=== PATIENT | male | born 1955 | race African-American/Black ===

== ENCOUNTER 2019-06-27 11:40 | Outpatient (CLI) | payer OTHER, SELFPAY ==
--- NOTE | ~2019-06-27 | XR_ITS ---
XR knee RT 3V DATE: 06/27/2019 12:15 INDICATION: Right knee pain TECHNIQUE: [place], lateral and AP views COMPARISON: 06/17/2018 right knee FINDINGS: Status post medial compartment surgical joint replacement. There is osteoarthritic spurring at the patellofemoral joint. No fracture or dislocation, periosteal reaction or bone destruction is evident. Minimal suprapatellar knee joint effusion is suggested. IMPRESSION: Osteophyte is at the patellofemoral compartment Minimal knee joint effusion is suggested Status post medial compartment joint replacement Reviewed, dictated and finalized at location A.
== END 2019-06-27 11:41 | disposition home or self-care (01) ==
PROVIDERS: PCP Family Medicine; Visit Provider Orthopaedic Surgery
DX: Z47.89 Encounter for other orthopedic aftercare (principal)
CPT/HCPCS: 73562

== ENCOUNTER 2019-06-27 12:23 | Emergency (ER) | payer OTHER, SELFPAY ==
--- NOTE | ~2019-06-27 | CT_ITS ---
EXAMINATION: CT brain wo con INDICATION: Headache COMPARISON: 09/11/2011 TECHNIQUE: Standard unenhanced head CT. The dose-length product (DLP) was 605.33 mGy-cm. The mA was a djusted according to patient size. Iterative reconstruction technique was employed. FINDINGS: There is no intracranial hemorrhage, acute infarction, or abnormal mass lesion. A chronic a tram of low attenuation in the left basal ganglia may reflect prominent perivascular space or old lacu sahil infarct. The ventricles are normal. There is no abnormal mass effect or midline shift. The de jesus-w nehemias matter differentiation is normal. The basal cisterns are patent. Multiple metallic fragments are again seen in and around the left orbit. The paranasal sinuses, mastoids and calvarium are normal. IMPRESSION: 1. No acute intracranial abnormality. 2. 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 Reviewed, dictated and finalized at location A.
[2019-06-27 12:28] VITALS: BP 176/79; PULSE 71; RESP 20; TEMP 36.7; O2SAT 100
[2019-06-27 12:35] VITALS: BP 160/79; PULSE 64; RESP 14; TEMP 36.8; O2SAT 99
--- NOTE | 2019-06-27 12:41 | ED.HA ---
HPI - Headache General Chief Complaint: Headache Stated Complaint: HEADACHE, NAUSEA Time Seen by Provider: 06/27/19 12:36 Source: patient Mode of arrival: ambulatory Limitations: no limitations History of Present Illness HPI Narrative: A 64 y/o male presents to the ED with c/o left frontal TATUM that radiates to his jaw. Pt states that the severe TATUM started 1 week ago when he woke up and has worsened that last 3 days. The TATUM is described as a squeezing feeling. He notes that the TATUM has been constant, but occasionally intensifies in severity. Pt adds that the TATUM is aggravated by eating. He has had this type of TATUM before 3 weeks ago when his jaw popped. Pt states that he saw a doctor and was told he has TMJ and was prescribed with Hydrocortisone and Meloxicam. He has been noncompliant with his medication and notes that this is because he is busy and forgets. Pt has a PMHx of HTN and chronic back pain. He took Tramadol this morning with no relief. Pt denies N/V, visual changes, and fever. MD elicited complaint: headache (Left frontal) Onset (ago): week(s) (1) Onset description: on awakening Location: left and frontal Severity: similar to previous episodes Quality & Timing: squeezing and similar to previous headaches Exacerbating factors: other (Eating) Associated symptoms: none Related Data Allergies Allergy/AdvReac Type Severity Reaction Status Date / Time No Known Allergies Allergy Verified 06/27/19 12:41 Review of Systems Review of Systems: All systems reviewed & are unremarkable except as noted in HPI and below Constitutional: Constitutional: Denies fever(s) Eyes: Eyes: Denies change in vision Gastrointestinal: Gastrointestinal: Denies nausea and Denies vomiting Neurologic: Reports headache(s) (Left frontal) [facility] Past Medical History Medical History (Updated 06/27/19 @ 14:21 by Dagmar Badillo MD) Arthritis Colon polyps Degeneration of intervertebral disc, site unspecified DVT (deep venous thrombosis) Essential (primary) hypertension Gastro-esophageal reflux disease without esophagitis Lumbago with sciatica Mixed hyperlipidemia Other irritable bowel syndrome Pulmonary embolism Rectal polyp TMJ (dislocation of temporomandibular joint) Toe fracture Surgical History Surgical History (Updated 06/27/19 @ 13:05 by Victorina Lynn) History of hand surgery Right, Knot removal Dr. Afton History of knee replacement, total Family History Family History Mother Diabetes mellitus Hypertension Family history of lung cancer Sibling Family history of malignant neoplasm of breast in first degree relative, Onset Age: 45 Social History Social History Smoking status: Never smoker Alcohol intake: current Additional living arrangements comments: Additional occupation/education comments: [employer] Gender identity (if verbalized by the patient): Male Exam Narrative: Exam Narrative: General appearance: Well-developed, well-nourished Skin: Normal color Head: Normocephalic, nontraumatic Eyes: Clear conjunctiva ENT: Oropharynx normal, ears normal, nose normal, moderate tenderness left TMJ worse when patient open and close his mouth. Neck: Supple, nontender Chest and respiratory: Airway patent, no respiratory distress, no accessory muscle use Heart: Regular rate/rhythm Abdomen: Soft, nontender, no organomegaly, quiet bowel sounds Vascular: Normal peripheral pulses, normal capillary refill. Musculoskeletal: Normal range of motion, nontender back Neurologic: Alert and oriented ?3, ETHOLOGIST is normal as tested, no gross motor deficit
--- NOTE | 2019-06-27 12:45 | ECG_ITS ---
Measurements Intervals [place] Rate: 63 P: 36 ID: [id number] QRS: 24 QRSD: 121 T: 30 QT: 393 QTc: 403 Interpretive Statements SINUS RHYTHM WITH FIRST DEGREE AV BLOCK INTRAVENTRICULAR CONDUCTION DELAY BORDERLINE T WAVE ABNORMALITY- ANTEROLAT/INF LEADS BASELINE WANDER- I, II ABNORMAL ECG Electronically Signed On 06-27-2019 13:29:51 CDT by Jones Hagen D.O.
[2019-06-27 13:17] LABS: Basophils Absolute Auto 0.1 K/mm3 (0.0-0.1); Basophils Percent Auto 0.7 % (0.2-1.2); Eosinophils Absolute Auto 0.2 K/mm3 (0-0.3); Eosinophils Percent Auto 2.9 % (0-4.4); Hematocrit 43.5 % (42.0-52.0); Hemoglobin 13.6 g/dL (14.0-18.0); Immature Granulocyte Absolute 0.01 K/mm3 (0.00-0.031); Immature Granulocyte Percent A 0.1 % (0-0.5); Lymphocytes Absolute Auto 3.62 K/mm3 (0.9-3.2); Lymphocytes Percent Auto 53.1 % (18.3-44.2); Mean Corpuscular HGB Conc 31.3 g/dl (32-36); Mean Corpuscular Hemoglobin 28.6 pg (26-34); Mean Corpuscular Volume 91.4 fl (80-100); Mean Platelet Volume 9.9 fl (7.4-10.4); Monocytes Absolute Auto 0.7 K/mm3 (0.1-0.6); Neutrophils Absolute Auto 2.3 K/mm3 (1.3-6.7); Neutrophils Percent Auto 33.2 % (45.5-73.1); Platelet Count Result 254 k/mm3 (150-375); Red Blood Count 4.76 M/mm3 (4.6-6.20); Red Cell Distribution Width 14.4 % (11.5-14.5); White Blood Count 6.8 K/mm3 (4.5-10.0)
[2019-06-27 13:24] LABS: Alanine Aminotransferase 28 U/L (4-50); Albumin Level 4.7 g/dL (3.5-5.1); Alkaline Phosphatase 42 U/L (38-126); Aspartate Amino Transferase 38 U/L (17-59); Bilirubin,Total 0.6 mg/dL (0.2-1.3); Blood Urea Nitrogen 14 mg/dL (9-20); Calcium 8.9 mg/dL (8.4-10.2); Carbon Dioxide 28 mmol/L (22-30); Chloride 103 mmol/L (98-107); Estimated CRCL calculation 81 ml/min; Estimated Glomerular Filt Rate > 60; Glucose 120 mg/dL (75-110); Potassium 4.4 mmol/L (3.4-5.0); Sodium 139 mmol/L (137-145)
[2019-06-27 13:40] LABS: Erythrocyte Sedimentation Rate 6 mm/hr (0-20)
[2019-06-27 13:48] VITALS: BP 151/77; PULSE 64; RESP 15; O2SAT 100
[2019-06-27] MEDS: IBUPROFEN 600 MG TABLET PO (14:18)
[2019-06-27 14:36] VITALS: BP 155/77; PULSE 59; RESP 14; O2SAT 100
== END 2019-06-27 14:37 | disposition home or self-care (01) ==
PROVIDERS: Emergency Provider Emergency Medicine; PCP Family Medicine
DX: M26.602 Left temporomandibular joint disorder, unspecified (principal); R51 Headache; I10 Essential (primary) hypertension; M19.90 Unspecified osteoarthritis, unspecified site; K21.9 Gastro-esophageal reflux disease without esophagitis; E78.2 Mixed hyperlipidemia; Z86.711 Personal history of pulmonary embolism; K58.9 Irritable bowel syndrome, unspecified; Z86.010 Personal history of colon polyps; Z91.14 Patient's other noncompliance with medication regimen; I44.0 Atrioventricular block, first degree; I45.9 Conduction disorder, unspecified; R94.31 Abnormal electrocardiogram [ECG] [EKG]
CPT/HCPCS: 36415; 70450; 80053; 85025; 85652; 93005; 99284; A9270

== ENCOUNTER 2019-08-24 11:02 | Outpatient (CLI) | payer OTHER, SELFPAY ==
--- NOTE | ~2019-08-24 | XR_ITS ---
EXAMINATION: XR knee LT 3V DATE: 08/24/2019 11:23 INDICATION: Left knee pain. TECHNIQUE: 3 views of left knee were obtained. COMPARISON: Left knee radiographs 07/25/2006 FINDINGS: Bone alignment is normal. No fracture. There is moderate osteoarthritis of medial compartme nt and mild osteoarthritis of lateral and patellofemoral compartments. No knee joint effusion. IMPRESSION: 1. Moderate left knee osteoarthritis. Reviewed, dictated and finalized at location A.
== END 2019-08-24 11:03 | disposition home or self-care (01) ==
PROVIDERS: PCP Family Medicine; Visit Provider Orthopaedic Surgery
DX: M25.562 Pain in left knee (principal); M17.12 Unilateral primary osteoarthritis, left knee
CPT/HCPCS: 73562

== ENCOUNTER 2020-02-20 11:31 | Outpatient (CLI) | payer OTHER, SELFPAY ==
--- NOTE | ~2020-02-20 | XR_ITS ---
EXAMINATION: XR hand LT min 3V DATE: 02/20/2020 11:52 INDICATION: Left hand pain. TECHNIQUE: 3 views of left hand were obtained. COMPARISON: None. FINDINGS: Bone alignment is normal. No fracture. There is mild osteoarthritis of first carpometacarpa l joint, first, second, and fifth metacarpophalangeal joints, and some of the interphalangeal joints. IMPRESSION: 1. Mild polyarticular osteoarthritis. Reviewed, dictated and finalized at location A. RAISER
== END 2020-02-20 11:32 | disposition home or self-care (01) ==
PROVIDERS: PCP Family Medicine; Visit Provider Orthopaedic Surgery
DX: M19.042 Primary osteoarthritis, left hand (principal); M18.12 Unilateral primary osteoarthritis of first carpometacarpal joint, left hand
CPT/HCPCS: 73130

== ENCOUNTER 2020-02-26 09:06 | Outpatient (CLI) | payer OTHER, SELFPAY ==
--- NOTE | ~2020-02-26 | US_ITS ---
EXAMINATION: US soft tissue UE LT DATE: 02/26/2020 09:59 INDICATION: Left hand lump and pain. TECHNIQUE: Multiple grayscale and Doppler ultrasound images of the left hand were obtained. COMPARISON: Left hand radiographs 01/20/2020 FINDINGS: At the palmar aspect of the left hand proximal third digit, there is discontinuity of the f lexor tendons with fluid in the expected area of the tendons. There is focal fluid around the tendons in this area. IMPRESSION: 1. Partial versus complete tear of the left hand third flexor digitorum tendons at the level of the p roximal phalanx. Focal fluid around the tendons in this area may be tenosynovitis or a ganglion cyst. Reviewed, dictated and finalized at location A. TREAD OPERATOR IMPRESSION: 1. Partial versus complete tear of the left hand third flexor digitorum tendons at the level of the proximal phalanx. Focal fluid around the tendons in this a tram may be tenosynovitis or a ganglion cyst.
== END 2020-02-26 09:07 | disposition home or self-care (01) ==
PROVIDERS: PCP Family Medicine; Visit Provider Orthopaedic Surgery
DX: S66.113A Strain of flexor muscle, fascia and tendon of left middle finger at wrist and hand level, initial encounter (principal)
CPT/HCPCS: 76882

== ENCOUNTER 2020-03-07 08:06 | Outpatient (CLI) | payer OTHER, SELFPAY ==
[2020-03-07 08:44] LABS: Anion Gap 7 mmol/L (8-16); Blood Urea Nitrogen 13 mg/dL (9-20); Calcium 9.3 mg/dL (8.4-10.2); Carbon Dioxide 34 mmol/L (22-30); Chloride 97 mmol/L (98-107); Estimated Glomerular Filt Rate > 60; Glucose 123 mg/dL (75-110); Sodium 138 mmol/L (137-145)
== END 2020-03-07 08:07 | disposition home or self-care (01) ==
LOC: ANHSURGERY 08:07
PROVIDERS: Anesthesiology; PCP Family Medicine; Visit Provider Orthopaedic Surgery
DX: Z01.812 Encounter for preprocedural laboratory examination (principal); I10 Essential (primary) hypertension
CPT/HCPCS: 36415; 80048

== ENCOUNTER 2020-03-11 01:37 | Outpatient (CLI) | payer OTHER, SELFPAY ==
[2020-03-11 21:25] LABS: SARS-CoV-2 RNA PCR Negative
== END 2020-03-11 01:38 | disposition home or self-care (01) ==
LOC: ANHCOVIDDT 01:37
PROVIDERS: PCP Family Medicine; Visit Provider Orthopaedic Surgery
DX: Z01.812 Encounter for preprocedural laboratory examination (principal); Z20.828 Contact with and (suspected) exposure to other viral communicable diseases
CPT/HCPCS: 87635; C9803; U0003

== ENCOUNTER 2020-03-14 01:51 | Day surgery (SDC) | payer OTHER, SELFPAY ==
[2020-03-04 12:33] VITALS: BMI 29.5
[2020-03-14] VITALS (8 sets, daily range): BP systolic 116–162; BP diastolic 63–76; PULSE 52–66; RESP 12–20; TEMP 36.4–36.5; O2SAT 97–100
--- NOTE | 2020-03-14 13:52 | WPDHPUPDATE1 ---
History and Physical Update Update Date/Time: 03/14/20 13:52 History and Physical has been reviewed, including an updated exam of the patient. There are NO changes in the patient's condition. Risks, benefits, and alternatives have been discussed and questions answered. Patient agrees to proceed with procedure.
[2020-03-14] MEDS: ACETAMINOPHEN 500 MG TABLET 1000 MG PO (13:56)
[2020-03-14] MEDS: LACTATED RINGERS 1,000 ML 30 ML IV CONT (14:00)
[2020-03-14] MEDS: KETOROLAC 15 MG/ML VIAL (*BKC) IV PUSH (14:02)
--- NOTE | 2020-03-14 14:04 | WPDANESEPPF ---
Anes - Initial Pre Proc Eval Procedure: Operation Date: 03/14/20 15:30 Proposed Procedures p Excision Left Third Finger Flexor Tendon Sheath Ganglion - Eyal Gregory MD Date/Time: 03/14/20 14:04 Surgeon: Eyal Gregory MD Pre Op Diagnosis: Left Third Finger Flexor Tendon Sheath Ganglion Patient Data Age: 65 Gender: M Height: 5 ft 9 in Weight: 90.75 kg Allergies Allergy/AdvReac Type Severity Reaction Status Date / Time No Known Allergies Allergy Verified 03/14/20 13:46 Home Medications Medication Instructions Recorded Confirmed Type telmisartan 80 1 tablet PO DAILY #90 tablet 02/24/19 03/14/20 Rx mg-hydrochlorothiazide 12.5 mg tablet tramadol 50 mg tablet 100 mg PO Q6H PRN #240 tablet 01/07/20 03/04/20 Rx hydrocodone 5 mg-acetaminophen 325 1 tablet PO Q6H PRN #60 tablet 02/23/20 03/04/20 Rx mg tablet ascorbate calcium (vitamin C) 500 mg PO DAILY 03/04/20 03/14/20 History calcium carbonate-vitamin D3 1 tablet PO DAILY 03/04/20 03/14/20 History [Calcium 500 + D (D3)] diazepam 5 mg PO PRN PRN 03/04/20 03/14/20 History glucos sul [id number]-Mn 1 cap PO DAILY 03/04/20 03/14/20 History [Glucosamine Chondroitin] multivitamin [Daily Multivitamin] 1 tablet PO DAILY 03/04/20 03/14/20 History tizanidine 4 mg PO PRN PRN 03/04/20 03/04/20 History vitamin B complex 1 cap PO DAILY 03/04/20 03/14/20 History Patient hx anesthesia problems: none Family hx anesthesia problems: none PMFSH Past Medical History Medical History Arthritis BMI 28.0-28.9,adult Colon polyps Degeneration of intervertebral disc, site unspecified DVT (deep venous thrombosis) Essential (primary) hypertension Gastro-esophageal reflux disease without esophagitis Hypertension Lumbago with sciatica Mixed hyperlipidemia Osteoarthritis of left knee Other irritable bowel syndrome Pulmonary embolism Rectal polyp TMJ (dislocation of temporomandibular joint) Toe fracture Surgical History Surgical History History of hand surgery Right, Knot removal Dr. Gregory S/P right unicompartmental knee replacement Family History Family History Mother Diabetes mellitus Hypertension Family history of lung cancer Sibling Family history of malignant neoplasm of breast in first degree relative, Onset Age: 45 Social History Social History Smoking status: Never smoker Alcohol intake: current Drinks per week: 4 Alcohol use details: BEER Living arrangements: with family Additional living arrangements comments: Additional occupation/education comments: [employer] [place] Gender identity (if verbalized by the patient): Male Spiritual care concerns: Yes ( Pentecostalism) Agree to blood products: No Anes - Eval Final PreProcedure Day of Procedure 03/14/20 14:04 Patient weight: overweight Heart: regular rate and rhythm Lungs: clear to auscultation Airway: Mallampati scale class II Neurological: alert and oriented Last oral intake: >/= 8 hours ASA classification: II Emergent: no Anesthetic plan: proceed Anesthesia type and monitoring: general LMA and standard monitoring Informed Consent: The patient's anesthetic plan and its attendant risks and benefits were discussed with the patient/family/POA. Questions were solicited and answers provided to the satisfaction of the patient/family/POA.
[2020-03-14] MEDS: ceFAZolin 2 GM/D5W 50 ML 2 GM/50 ML BAG IVPB (14:12)
[2020-03-14] MEDS: BUPIVACAINE HCL 0.5% PF 30 ML VIAL INFILTRATE (14:28)
--- NOTE | 2020-03-14 15:09 | P.OP_ITS ---
Procedure Note - Detailed Date of procedure: 03/14/20 Pre-op diagnosis: Left Third Finger Flexor Tendon Sheath Ganglion Post-op diagnosis: same Procedure performed: Excision ganglion left third finger flexor tendon sheath Description of procedure: Patient was identified and proper site identified. He was taken back to the operating room and transferred to the or table positioning him supine taking care to pad his torso and extremities. After general anesthetic induction and intubation, a nonsterile tourniquet was placed high on the left arm. Left upper extremity is prepped and draped free in the usual sterile fashion. Extremity was exsanguinated in the tourniquet was inflated to 250 mmHg remaining up for about 24 minutes. A Sveta type incision was made at the base of the left long finger volarly. Hemostasis was carried out throughout the procedure. Subcutaneous tissue was bluntly dissected identifying protecting the neurovascular bundles on either side of the flexor tendon sheath. Multilobulated ganglion was identified easily and decompressed after which the cyst lecuhga were excised. The wound was irrigated with sterile saline. Subcutaneous tissue was infiltrated with several cc of 0.25% plain Marcaine. Skin edges were reapproximated with four O nylon suture and sterile dressing was applied. Tourniquet was released. Patient was awakened, extubated taken recovery area in stable condition. There were no known intraoperative complications. Estimated blood loss was negligible. He received perioperative antibiotics. Anesthesia: GLMA Surgeon: Eyal Gregory MD Gas Usage Meter Clerk: Moe Greene Estimated blood loss (mL): 3 Tourniquet time (min): 24 Drains: No Packing: No Pathology: yes (Left hand third flexor tendon sheath cyst wall) Complications: No immediate complications Condition: stable Disposition: PACU
[2020-03-14] MEDS: oxyCODONE HCL (*CRX) 5 MG TAB IR PO (16:32)
== END 2020-03-14 16:40 | disposition home or self-care (01) ==
PROVIDERS: PCP Family Medicine; Visit Provider Orthopaedic Surgery
PROC: (CPT 26160; principal; 2020-03-14 15:30)
DX: M67.442 Ganglion, left hand (principal); I10 Essential (primary) hypertension; K21.9 Gastro-esophageal reflux disease without esophagitis; E78.2 Mixed hyperlipidemia; K58.9 Irritable bowel syndrome, unspecified; Z86.711 Personal history of pulmonary embolism; Z86.718 Personal history of other venous thrombosis and embolism
CPT/HCPCS: 26160; 88304; A9270; J0690; J1100; J1885; J2250; J2405; J2704; J3010; J7120

== ENCOUNTER 2020-03-26 19:55 | Observation (INO) | payer OTHER, SELFPAY ==
--- NOTE | ~2020-03-26 | XR_ITS ---
EXAMINATION: XR chest 1V portable DATE: 03/26/2020 22:39 INDICATION: Fever, chest pain, dyspnea and weakness. TECHNIQUE: frontal view of the chest was obtained. COMPARISON: Chest CT dated 03/26/2020 FINDINGS: The lungs are clear with no focal airspace opacities, pulmonary edema, pleural effusion or pneumothor ax. The cardiomediastinal silhouette is normal. Visualized bones and soft tissues are unremarkable. IMPRESSION: 1. No acute cardiopulmonary disease. Reviewed, dictated and finalized at location A. TAL PROOFING AND PLATEMAKER
--- NOTE | ~2020-03-26 | NM_ITS ---
EXAMINATION: NM gerry stress w perfusion DATE: 03/29/2020 13:02 INDICATION: Chest pain TECHNIQUE: Rest images were obtained following intravenous administration of 10 mCi Tc99m tetrofosmin (Myoview). The patient was infused intravenously with Lexiscan (Regadenoson). Then, 29.7 mCi Tc99m t etrofosmin (Myoview) was administered intravenously, and stress images were obtained. Data was recons tructed into short axis and horizontal and vertical long axis SPECT images. Gated SPECT images were a lso obtained. COMPARISON: None. FINDINGS: There is no definite reversible or fixed perfusion abnormality to suggest ischemia or infar ction. There is normal left ventricular chamber size, wall motion and ejection fraction. Left ventr icular ejection fraction measures >70%. IMPRESSION: 1. Normal myocardial perfusion at rest and during stress. 2. Left ventricular ejection fraction measuring >70%. Reviewed, dictated and finalized at location B. L MAINFRAME DEVELOPER
--- NOTE | ~2020-03-26 | CT_ITS ---
EXAMINATION: CTA chest PE protocol DATE: 03/26/2020 21:40 INDICATION: Fever, dyspnea, chest pain and weakness. TECHNIQUE: Computed tomography (CT) pulmonary angiogram of the chest was performed with 100 mL Omnipa que-350 intravenous contrast. Additional 3D reconstructions utilizing coronal maximum intensity proje ction (MIP) were performed. Automated exposure control and iterative reconstruction technique were em ployed. The dose-length product was 400.06 mGy-cm. COMPARISON: None FINDINGS: . contrast opacification of the pulmonary arteries. There is mild streak artifact from dense contrast in the superior vena cava and right atrium. Minimal scattered respiratory motion artifact which does not significantly limit evaluation. No pulmonary embolism. Minimal dependent atelectasis in the bila teral lower lobes. Calcified right lower lobe nodule along with calcified mediastinal lymph nodes and couple punctate splenic calcifications, all consistent with old granulomatous disease. No pneumonia, pulmonary edema, pleural effusion or pneumothorax. Heart size is normal. No pericardial effusion. Th oracic aorta is normal in caliber with no dissection. No pathologically enlarged thoracic lymphadenop athy. Mild bilateral gynecomastia. Cysts at the upper poles of both kidneys the largest on the right measuring 2.2 cm. Lungs are unremarkable. IMPRESSION: 1. No pulmonary embolism or other acute cardiopulmonary disease. Reviewed, dictated and finalized at location A. OCOMPOSITION KEYBOARD OPERATOR
--- NOTE | ~2020-03-26 | US_ITS ---
EXAMINATION: US renal BI DATE: 03/29/2020 11:27 INDICATION: Urinary tract infection TECHNIQUE: Multiple ultrasound grayscale images of the kidneys were obtained. COMPARISON: CT dated 11/02/2014 FINDINGS: The right kidney measures 11.5 x 5.6 x 5.0 cm. The left kidney measures 11.5 x 5.7 x 6.1 cm. The kidn eys demonstrate normal echogenicity. 1.3 cm anechoic cyst at the upper pole of the right kidney. Ther e is no hydronephrosis in either kidney. No stones identified. Diffuse wall thickening in the bladde r to at least in part to nearly decompressed state although this could also be related to chronic out let obstruction from the mildly enlarged prostate which measures approximately 4.4 x 2.9 x 4.1 cm. IMPRESSION: 1. Small cyst at the upper pole the right kidney. Otherwise normal kidneys with no hydronephrosis. 2. Diffuse bladder wall thickening due at least in part to nearly decompressed state although could a lso represent sequela of chronic outlet obstruction from the mildly enlarged prostate. Reviewed, dictated and finalized at location B. [place] [employer] IMPRESSION: 1. Small cyst at the upper pole the right kidney. Otherwise normal kidneys wit h no hydronephrosis. 2. Diffuse bladder wall thickening due at least in part to nearly decompressed state although could also represent sequela of chronic outlet obstruction from the mildly enlarged prostate.
--- NOTE | 2020-03-26 20:03 | ED.CHESTPAIN ---
HPI - Chest Pain General Chief Complaint: Chest Pain Stated Complaint: fever, back pain, chest pain Time Seen by Provider: 03/26/20 20:02 Source: patient Mode of arrival: ambulatory Limitations: no limitations History of Present Illness HPI narrative: Patient is a 65-year-old male with a history of hypertension who presents for evaluation of chest pain, fever. Chest pain has been intermittent since yesterday, described as a pressure over the center of his chest with radiation to his back. He reports mild associated shortness of breath but denies any cough. He has had a fever of 101 Fahrenheit to 102 Fahrenheit since yesterday. He reports rhinorrhea. He denies loss of sense of taste or smell. Denies lower leg swelling or pain. Patient recently had a ganglion cyst removal on March [address] Gregory, hand is well healing, he denies redness, swelling, pain or discharge at the left hand. Patient in the past is followed with the heart care group, he denies history of heart attack. He has never had an abnormal stress test. No recent sick contacts. No abdominal pain or diarrhea. He does report some mild dysuria and frequency. Related Data Home Medications Medication Instructions Recorded Confirmed Glucosamine Chondroitin 1 cap PO DAILY 03/04/20 03/14/20 ascorbate calcium (vitamin C) 500 mg PO DAILY 03/04/20 03/14/20 calcium carbonate-vitamin D3 1 tablet PO DAILY 03/04/20 03/14/20 diazepam 5 mg PO PRN PRN 03/04/20 03/14/20 multivitamin 1 tablet PO DAILY 03/04/20 03/14/20 tizanidine 4 mg PO PRN PRN 03/04/20 03/04/20 vitamin B complex 1 cap PO DAILY 03/04/20 03/14/20 Allergies Allergy/AdvReac Type Severity Reaction Status Date / Time No Known Allergies Allergy Verified 03/14/20 13:46 Review of Systems Review of Systems: Narrative: CONSTITUTIONAL: Reports fever and chills EYES: Denies visual changes, redness, or discharge. ENT: Reports rhinorrhea CARDIOVASCULAR: Reports chest pain without palpitations or edema RESPIRATORY: Denies cough, reports mild shortness of breath GASTROINTESTINAL: Denies abdominal pain, nausea, vomiting, or diarrhea. GENITOURINARY: Reports dysuria and frequency with SKIN: Denies rash or itching. MUSCULOSKELETAL: Denies lower back pain, joint pain, or myalgia. NEUROLOGIC: Denies headache, numbness, or weakness. [facility] Past Medical History Medical History Arthritis BMI 28.0-28.9,adult Colon polyps Degeneration of intervertebral disc, site unspecified DVT (deep venous thrombosis) Essential (primary) hypertension Gastro-esophageal reflux disease without esophagitis Hypertension Lumbago with sciatica Mixed hyperlipidemia Osteoarthritis of left knee Other irritable bowel syndrome Pulmonary embolism Rectal polyp TMJ (dislocation of temporomandibular joint) Toe fracture Surgical History Surgical History History of hand surgery Right, Knot removal Dr. 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 EYES: PERRLA and EOMI. ENT: Nares clear, no rhinorrhea or epistaxis. Mucous membranes moist. NEC
--- NOTE | 2020-03-26 20:11 | ECG_ITS ---
Measurements Intervals [place] Rate: 101 P: 28 LA: 186 QRS: 47 QRSD: 110 T: 24 QT: 309 QTc: 400 Interpretive Statements SINUS TACHYCARDIA DELAYED PRECORDIAL R/S TRANSITION BORDERLINE ST-T WAVE ABNORMALITY- DIFFUSE LEADS BORDERLINE ECG Electronically Signed On 03-27-2020 9:18:24 DRYWALL APPLICATION SUPERVISOR by Jones Hagen D.O.
[2020-03-26 20:16] VITALS: BP 159/83; PULSE 100; RESP 17; TEMP 38.3
[2020-03-26] MEDS: ASPIRIN 81 MG CHEWABLE TABLET 324 MG PO (20:28)
[2020-03-26 20:29] LABS: Basophils Absolute Auto 0.1 K/mm3 (0.0-0.1); Basophils Percent Auto 0.3 % (0.2-1.2); Eosinophils Absolute Auto 0.1 K/mm3 (0-0.3); Eosinophils Percent Auto 0.4 % (0-4.4); Hematocrit 47.1 % (42.0-52.0); Hemoglobin 15.3 g/dL (14.0-18.0); Immature Granulocyte Absolute 0.08 K/mm3 (0.00-0.031); Immature Granulocyte Percent A 0.4 % (0-0.5); Lymphocytes Percent Auto 17.3 % (18.3-44.2); Mean Corpuscular HGB Conc 32.5 g/dl (32-36); Mean Corpuscular Hemoglobin 28.8 pg (26-34); Mean Corpuscular Volume 88.7 fl (80-100); Mean Platelet Volume 9.5 fl (7.4-10.4); Monocytes Absolute Auto 1.5 K/mm3 (0.1-0.6); Monocytes Percent Auto 8.5 % (2.6-8.5); Neutrophils Absolute Auto 13.1 K/mm3 (1.3-6.7); Neutrophils Percent Auto 73.1 % (45.5-73.1); Platelet Count Result 233 k/mm3 (150-375); Red Blood Count 5.31 M/mm3 (4.6-6.20); Red Cell Distribution Width 14.5 % (11.5-14.5); White Blood Count 17.9 K/mm3 (4.5-10.0)
[2020-03-26] MEDS: ONDANSETRON INJ 4 MG/2 ML VIAL IV PUSH (20:29)
[2020-03-26] MEDS: MORPHINE SULFATE (*CRX) 4 MG/ML INJ IV PUSH (20:29)
[2020-03-26 20:42] LABS: INR 0.9
[2020-03-26 20:43] LABS: Partial Thromboplastin Time 30.8 SECONDS (22.3-36.8)
[2020-03-26 21:02] LABS: Alanine Aminotransferase 26 U/L (4-50); Albumin Level 4.8 g/dL (3.5-5.1); Alkaline Phosphatase 58 U/L (38-126); Anion Gap 10 mmol/L (8-16); Aspartate Amino Transferase 28 U/L (17-59); Bilirubin,Total 0.7 mg/dL (0.2-1.3); Blood Urea Nitrogen 8 mg/dL (9-20); Carbon Dioxide 33 mmol/L (22-30); Chloride 95 mmol/L (98-107); Estimated CRCL calculation 64 ml/min; Estimated Glomerular Filt Rate > 60; Glucose 135 mg/dL (75-110); NT Pro B Type Natriuretic Pept 33 PG/ML (5-100); Potassium 3.8 mmol/L (3.4-5.0); Sodium 138 mmol/L (137-145); Troponin I < 0.012 ng/mL (0.000-0.034)
[2020-03-26] MEDS: METOCLOPRAMIDE HCL INJ 10 MG/2 ML VIAL IV PUSH (21:18)
[2020-03-26] MEDS: SODIUM CHLORIDE 0.9% IV 500 ML 999 ML IV CONT (21:18)
[2020-03-26 21:19] VITALS: BP 159/83; PULSE 89; RESP 15; O2SAT 95
[2020-03-26 21:45] LABS: Add Urine Microscopic? YES; Appearance Urine Clear (Clear); Bilirubin Urine Negative (Negative); Blood Urine Negative (Negative); Color Urine Straw (Yellow); Glucose Urine UA Negative (Negative); Ketones Urine Negative (Negative); Leukocyte Esterase Ur Trace LEU/UL (Negative); Nitrate Urine Negative (Negative); Protein Urine Negative (Negative); RBC Urine 0-2 /hpf (0-2); Specific Grav Ur 1.006 (1.001-1.035); Squamous Epithelial Cell Urine Rare /hpf (Few); Urobilinogen Urine Negative mg/dL (<2.0); WBC Urine 16-20 /hpf
[2020-03-26 22:21] LABS: Lactic Acid Reflex 1.3 mmol/L (0.7-2.1)
--- NOTE | 2020-03-26 22:32 | PM.IMHP ---
H&P: HPI History of Present Illness Date/Time: 03/26/20 22:32 Chief complaint: fever, back pain, chest pain Narrative: Desmond Delcid is a 65 year old male [facility] Past Medical History Medical History Arthritis BMI 28.0-28.9,adult Colon polyps Degeneration of intervertebral disc, site unspecified DVT (deep venous thrombosis) Essential (primary) hypertension Gastro-esophageal reflux disease without esophagitis Hypertension Lumbago with sciatica Mixed hyperlipidemia Osteoarthritis of left knee Other irritable bowel syndrome Pulmonary embolism Rectal polyp TMJ (dislocation of temporomandibular joint) Toe fracture Surgical History Surgical History History of hand surgery Right, Knot removal Dr. Gregory S/P right unicompartmental knee replacement Family History Family History Mother Diabetes mellitus Hypertension Family history of lung cancer Sibling Family history of malignant neoplasm of breast in first degree relative, Onset Age: 45 Social History Social History Smoking status: Never smoker Alcohol intake: current Drinks per week: 4 Additional living arrangements comments: Additional occupation/education comments: [employer] Gender identity (if verbalized by the patient): Male Spiritual care concerns: Yes ( Baptist) Agree to blood products: No Meds Home Medications and Allergies Home Medications Medication Instructions Recorded Confirmed Type telmisartan 80 1 tablet PO DAILY #90 tablet 02/24/19 03/14/20 Rx mg-hydrochlorothiazide 12.5 mg tablet tramadol 50 mg tablet 100 mg PO Q6H PRN #240 tablet 01/07/20 03/04/20 Rx Glucosamine Chondroitin 1 cap PO DAILY 03/04/20 03/14/20 History ascorbate calcium (vitamin C) 500 mg PO DAILY 03/04/20 03/14/20 History calcium carbonate-vitamin D3 1 tablet PO DAILY 03/04/20 03/14/20 History diazepam 5 mg PO PRN PRN 03/04/20 03/14/20 History multivitamin 1 tablet PO DAILY 03/04/20 03/14/20 History tizanidine 4 mg PO PRN PRN 03/04/20 03/04/20 History vitamin B complex 1 cap PO DAILY 03/04/20 03/14/20 History hydrocodone-acetaminophen 1 tablet PO Q6H PRN #20 tablet 03/14/20 Rx Allergies Allergy/AdvReac Type Severity Reaction Status Date / Time No Known Allergies Allergy Verified 03/14/20 13:46 Vital Signs Vital Signs - 24 hr 03/26/20 20:16 03/26/20 21:19 Temperature 38.3 C H Pulse Rate 100 89 Respiratory Rate 17 15 Blood Pressure 159/83 H 159/83 H Pulse Oximetry 95 H&P: Results Labs Labs: Short CBC 03/26/20 Range/Units 20:23 WBC 17.9 H (4.5-10.0) K/mm3 Hgb 15.3 (14.0-18.0) g/dL Hct 47.1 (42.0-52.0) % Plt Count 233 (150-375) k/mm3 BMP 03/26/20 20:23 Sodium 138 Potassium 3.8 Chloride 95 L Carbon Dioxide 33 H BUN 8 L D Creatinine 1.00 Glucose 135 H Calcium 10.0 Cardiac Enzymes 03/26/20 Range/Units 20:23 Troponin I < 0.012 (0.000-0.034) ng/mL Liver Function 03/26/20 Range/Units 20:23 Total Bilirubin 0.7 (0.2-1.3) mg/dL AST 28 (17-59) U/L ALT 26 (4-50) U/L Alkaline Phosphatase 58 (38-126) U/L Albumin 4.8 (3.5-5.1) g/dL Urine 03/26/20 Range/Units 21:23 Urine Color Straw (Yellow) Urine Appearance Clear (Clear) Urine pH 8.0 (5.0-9.0) Ur Specific [place] 1.006 (1.001-1.035) Urine Protein Negative (Negative) mg/dL Urine Glucose (UA) Negative (Negative) mg/dL
[2020-03-26 22:37] LABS: D Dimer 0.27 ug/mL (<0.48)
[2020-03-26 23:23] VITALS: BP 126/77; PULSE 82; RESP 15; O2SAT 94
[2020-03-26 23:48] LABS: Troponin I < 0.012 ng/mL (0.000-0.034)
[2020-03-27] VITALS (15 sets, daily range): BP systolic 113–147; BP diastolic 55–79; PULSE 57–97; RESP 12–20; TEMP 36.2–37.1; O2SAT 97–100
--- NOTE | 2020-03-27 01:26 | ADMGEN ---
This patient, Desmond Delcid, was admitted to IMU Room 211-01 at 0125. Patient/family oriented to hospital policies and general routines including ID bracelet, bed and alarms, visiting hours, pain management, procedures, bathroom and other care routines, personal items, smoking policy, room service/diet, and visiting hours. Information on how to activate the Rapid Response Team has been discussed. Patient/Family are encouraged to report perceived risks to care and to ask questions if they do not understand what they are told or what they should do.
[2020-03-27 04:08] LABS: Basophils Absolute Auto 0.1 K/mm3 (0.0-0.1); Basophils Percent Auto 0.4 % (0.2-1.2); Eosinophils Percent Auto 0.2 % (0-4.4); Hematocrit 44.2 % (42.0-52.0); Hemoglobin 14.3 g/dL (14.0-18.0); Immature Granulocyte Absolute 0.06 K/mm3 (0.00-0.031); Immature Granulocyte Percent A 0.4 % (0-0.5); Lymphocytes Absolute Auto 2.91 K/mm3 (0.9-3.2); Lymphocytes Percent Auto 17.7 % (18.3-44.2); Mean Corpuscular HGB Conc 32.4 g/dl (32-36); Mean Corpuscular Hemoglobin 29.1 pg (26-34); Mean Platelet Volume 9.4 fl (7.4-10.4); Monocytes Absolute Auto 1.6 K/mm3 (0.1-0.6); Monocytes Percent Auto 9.7 % (2.6-8.5); Neutrophils Absolute Auto 11.8 K/mm3 (1.3-6.7); Neutrophils Percent Auto 71.6 % (45.5-73.1); Platelet Count Result 182 k/mm3 (150-375); Red Blood Count 4.91 M/mm3 (4.6-6.20); Red Cell Distribution Width 14.6 % (11.5-14.5); White Blood Count 16.5 K/mm3 (4.5-10.0)
[2020-03-27 04:24] LABS: Alanine Aminotransferase 22 U/L (4-50); Albumin Level 4.2 g/dL (3.5-5.1); Alkaline Phosphatase 51 U/L (38-126); Anion Gap 9 mmol/L (8-16); Aspartate Amino Transferase 25 U/L (17-59); Bilirubin,Total 0.9 mg/dL (0.2-1.3); Blood Urea Nitrogen 8 mg/dL (9-20); Calcium 9.4 mg/dL (8.4-10.2); Carbon Dioxide 31 mmol/L (22-30); Chloride 98 mmol/L (98-107); Estimated CRCL calculation 64 ml/min; Estimated Glomerular Filt Rate > 60; Glucose 109 mg/dL (75-110); Potassium 4.1 mmol/L (3.4-5.0); Sodium 138 mmol/L (137-145)
[2020-03-27 05:06] LABS: Troponin I < 0.012 ng/mL (0.000-0.034)
[2020-03-27] MEDS: hydroCHLOROthiazide 12.5 MG CAPSULE PO (10:40)
[2020-03-27] MEDS: ACETAMINOPHEN 325 MG TABLET 650 MG PO (10:40)
[2020-03-27] MEDS: TELMISARTAN 40 MG TABLET 80 MG PO (10:40)
[2020-03-27] MEDS: MULTIVITAMINS THERAPEUTIC TAB (*BKC) 1 TABLET PO (10:46)
[2020-03-27] MEDS: VITAMIN B COMPLEX CAPSULE 1 CAP PO (10:46)
[2020-03-27] MEDS: ASCORBIC ACID 500 MG TABLET PO (10:46)
[2020-03-27] MEDS: traMADol HCL (*CRX) 50 MG TABLET 100 MG PO (12:57)
[2020-03-27 15:12] LABS: Anion Gap 4 mmol/L (8-16); Blood Urea Nitrogen 12 mg/dL (9-20); Calcium 9.6 mg/dL (8.4-10.2); Carbon Dioxide 36 mmol/L (22-30); Chloride 95 mmol/L (98-107); Estimated CRCL calculation 50 ml/min; Estimated Glomerular Filt Rate > 60; Glucose 175 mg/dL (75-110); Sodium 135 mmol/L (137-145)
[2020-03-27] MEDS: HYDROcodone/acetaminophen (*CRX) 5-325 MG TABLET 1 TAB PO ×2 (17:13→23:21)
[2020-03-27] MEDS: NEOMYCIN/POLYMYXIN/BACITRACIN OINTMENT PACKET 1 PACKET (17:19)
--- NOTE | 2020-03-27 17:45 | PM.IMHP ---
H&P: HPI History of Present Illness Date/Time: 03/27/20 17:45 Chief complaint: chest pain, febrile Narrative: Desmond Delcid is a 65 year old male male with history of hypertension presented emergency department with a complaint of chest pain with the complains of runny nose and congestion fever 101, and has no history of any sick contact, patient has no history of [place] in the past, patient 3 sets of cardiac enzymes are negative and there is no acute changes on EKG, the patient states his chest pain has resolved, to further evaluate I discussed the patient with doing Lexiscan test tomorrow to rule out coronary artery disease and patient has agreed, with a fever runny nose and congestion patient is being evaluated for COVID and isolated. Patient with complaint of chest pain and shortness of breath CTA of the chest was done it is negative for pulmonary emboli. Review of Systems Review of Systems: All systems reviewed & are unremarkable except as noted in HPI and below PMFSH Past Medical History Medical History Arthritis BMI 28.0-28.9,adult Colon polyps Degeneration of intervertebral disc, site unspecified DVT (deep venous thrombosis) Essential (primary) hypertension Gastro-esophageal reflux disease without esophagitis Hypertension Lumbago with sciatica Mixed hyperlipidemia Osteoarthritis of left knee Other irritable bowel syndrome Pulmonary embolism Rectal polyp TMJ (dislocation of temporomandibular joint) Toe fracture Surgical History Surgical History History of hand surgery Right, Knot removal Dr. 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[employer] Gender identity (if verbalized by the patient): Male Spiritual care concerns: No Agree to blood products: No Meds Home Medications and Allergies Home Medications Medication Instructions Recorded Confirmed Type telmisartan 80 1 tablet PO DAILY #90 tablet 02/24/19 03/27/20 Rx mg-hydrochlorothiazide 12.5 mg tablet tramadol 50 mg tablet 100 mg PO Q6H PRN #240 tablet 01/07/20 03/27/20 Rx Glucosamine Chondroitin 1 cap PO DAILY 03/04/20 03/27/20 History ascorbate calcium (vitamin C) 500 mg PO DAILY 03/04/20 03/27/20 History calcium carbonate-vitamin D3 1 tablet PO DAILY 03/04/20 03/27/20 History diazepam 5 mg PO HS PRN 03/04/20 03/27/20 History multivitamin 1 tablet PO DAILY 03/04/20 03/27/20 History tizanidine 4 mg PO TID PRN 03/04/20 03/27/20 History vitamin B complex 1 cap PO DAILY 03/04/20 03/27/20 History hydrocodone-acetaminophen 1 tablet PO Q6H PRN #20 tablet 03/14/20 03/27/20 Rx Allergies Allergy/AdvReac Type Severity Reaction Status Date / Time No Known Allergies Allergy Verified 03/14/20 13:46 Vital Signs Vital Signs - 24 hr 03/26/20 20:16 03/26/20 21:19 03/26/20 23:23 Temperature 101.0 F H Pulse Rate 100 89 82 Respiratory Rate 17 15 15 Blood Pressure 159/83 H 159/83 H 126/77 Pulse Oximetry 95 94 03/27/20 01:17 03/27/20 01:26 03/27/20 01:47 Temperature 98.2 F Pulse Rate 75 84 89 Respiratory Rate 16 18 Blood Pressure 124/67 147/79 H Pulse Oximetry 97 99 03/27/20 02:00 03/27/20 04:00 03/27/20 06:00 Temperature 98.8 F Pulse Rate 75 78 90 R
[2020-03-28] VITALS (13 sets, daily range): BP systolic 106–144; BP diastolic 50–65; PULSE 75–98; RESP 18–20; TEMP 35.9–36.8; O2SAT 81–100
[2020-03-28 05:50] LABS: Basophils Absolute Auto 0.1 K/mm3 (0.0-0.1); Basophils Percent Auto 0.3 % (0.2-1.2); Eosinophils Absolute Auto 0.1 K/mm3 (0-0.3); Eosinophils Percent Auto 0.2 % (0-4.4); Hematocrit 42.1 % (42.0-52.0); Hemoglobin 13.3 g/dL (14.0-18.0); Immature Granulocyte Absolute 0.15 K/mm3 (0.00-0.031); Immature Granulocyte Percent A 0.7 % (0-0.5); Lymphocytes Absolute Auto 3.62 K/mm3 (0.9-3.2); Lymphocytes Percent Auto 16.4 % (18.3-44.2); Mean Corpuscular HGB Conc 31.6 g/dl (32-36); Mean Corpuscular Hemoglobin 28.6 pg (26-34); Mean Corpuscular Volume 90.5 fl (80-100); Mean Platelet Volume 9.6 fl (7.4-10.4); Monocytes Absolute Auto 2.1 K/mm3 (0.1-0.6); Monocytes Percent Auto 9.3 % (2.6-8.5); Neutrophils Absolute Auto 16.1 K/mm3 (1.3-6.7); Neutrophils Percent Auto 73.1 % (45.5-73.1); Platelet Count Result 202 k/mm3 (150-375); Red Blood Count 4.65 M/mm3 (4.6-6.20); Red Cell Distribution Width 14.7 % (11.5-14.5); White Blood Count 22.1 K/mm3 (4.5-10.0)
[2020-03-28 06:00] LABS: Alanine Aminotransferase 18 U/L (4-50); Albumin Level 3.8 g/dL (3.5-5.1); Alkaline Phosphatase 56 U/L (38-126); Anion Gap 4 mmol/L (8-16); Aspartate Amino Transferase 24 U/L (17-59); Bilirubin,Total 0.8 mg/dL (0.2-1.3); Blood Urea Nitrogen 15 mg/dL (9-20); Calcium 9.2 mg/dL (8.4-10.2); Carbon Dioxide 36 mmol/L (22-30); Chloride 96 mmol/L (98-107); Estimated CRCL calculation 66 ml/min; Estimated Glomerular Filt Rate > 60; Glucose 106 mg/dL (75-110); Potassium 4.1 mmol/L (3.4-5.0); Sodium 136 mmol/L (137-145)
[2020-03-28] MEDS: TELMISARTAN 40 MG TABLET 80 MG PO (09:06)
[2020-03-28] MEDS: VITAMIN B COMPLEX CAPSULE 1 CAP PO (09:06)
[2020-03-28] MEDS: MULTIVITAMINS THERAPEUTIC TAB (*BKC) 1 TABLET PO (09:07)
[2020-03-28] MEDS: hydroCHLOROthiazide 12.5 MG CAPSULE PO (09:07)
[2020-03-28] MEDS: ASCORBIC ACID 500 MG TABLET PO (09:07)
[2020-03-28] MEDS: HYDROcodone/acetaminophen (*CRX) 5-325 MG TABLET 1 TAB PO ×2 (09:08→21:23)
[2020-03-28] MEDS: traMADol HCL (*CRX) 50 MG TABLET 100 MG PO (14:28)
--- NOTE | 2020-03-28 18:08 | PM.IMPN ---
Progress Note: A&P Assessment and Plan (1) Atypical chest pain: Code(s): R07.89 - Other chest pain Status: Acute Assessment and Plan: 03/28/20 18:08 Desmond Delcid is a 65 year old male male with history of hypertension presented emergency department with a complaint of chest pain with the complains of runny nose and congestion fever 101, and has no history of any sick contact, patient has no history of [place] in the past, patient 3 sets of cardiac enzymes are negative and there is no acute changes on EKG, the patient states his chest pain has resolved, to further evaluate I discussed the patient with doing Lexiscan test tomorrow to rule out coronary artery disease and patient has agreed, with a fever runny nose and congestion patient is being evaluated for COVID and isolated. Patient with complaint of chest pain and shortness of breath CTA of the chest was done it is negative for pulmonary emboli. Today patient states he does have urinary symptoms with hesitate, frequency urgency and dysuria, patient white counts are elevated, and urine culture is growing E coli sensitive to Rocephin, will start on Rocephin, will consult urology further recommendation, patient chest pain has resolved will recommend once patient is clinically stable and UTIs under control patient may have stress test and patient outpatient, will continue to monitor further recommendation to follow Subjective Date/time seen: 03/28/20 18:08 Desmond Delcid is a 65 year old male male with history of hypertension presented emergency department with a complaint of chest pain with the complains of runny nose and congestion fever 101, and has no history of any sick contact, patient has no history of VA in the past, patient 3 sets of cardiac enzymes are negative and there is no acute changes on EKG, the patient states his chest pain has resolved, to further evaluate I discussed the patient with doing Lexiscan test tomorrow to rule out coronary artery disease and patient has agreed, with a fever runny nose and congestion patient is being evaluated for COVID and isolated. Patient with complaint of chest pain and shortness of breath CTA of the chest was done it is negative for pulmonary emboli. Today patient states he does have urinary symptoms with hesitate, frequency urgency and dysuria, patient white counts are elevated, and urine culture is growing E coli sensitive to Rocephin, will start on Rocephin, will consult urology further recommendation, patient chest pain has resolved will recommend once patient is clinically stable and UTIs under control patient may have stress test and patient outpatient, will continue to monitor further recommendation to follow Review of Systems Review of Systems: All systems reviewed & are unremarkable except as noted in HPI and below Exam Narrative: Exam Narrative: Patient is comfortable, NAD HEENT: eyes are clear and none icteric LUNGS: Normal respiratory efforts ABD: Nondistended Lower extremities: no edema SKIN: nonjaundiced Neuro: grossly intact normal speech. Objective Data Vital Signs Vital Signs: Vital Signs - 24 hr 03/27/20 20:00 03/27/20 22:00 03/27/20 23:46 Temperature 97.3 F L 98.1 F Pulse Rate 91 83 97 Respiratory Rate 18 20 Blood Pressure 131/55 L 144/58 H Pulse Oximetry 98 100 03/28/20 00:00 03/28/20 02:00 03/28/20 04:00 Temperature 97.6 F Pulse Rate 97 81 87 Respiratory Rate 20 18 Blood Pressure 107/50 L Pulse Oximetry 100 99 03/28/20 06:00 03/28/20 08:00 03/28/20 08:02 Temperature 98.2 F Pulse Rate 78 82 98 Respiratory Rate 20 Blood Pressure 144/56 H Pulse Oximetry 100 03/28/20 10:00 03/28/20 12:00 03/28/20 12:37 Temperature 97.6 F Pulse Rate 83 80 95 Respiratory Rate 20 Blood Pressure 106/59 L Pulse Oximetry 81 L 03/28/20 17:45 Temperature 97.0 F L Pulse Rate 78 Respiratory Rate 20 Blood Pressure 113/59 L Pulse Ox
[2020-03-28 18:35] LABS: SARS-CoV-2 RNA PCR Negative
--- NOTE | 2020-03-28 22:38 | PC.NURSE ---
This patient, Desmond Delcid, was transferred to [ [id number]] on 03/28/20 at approx 2100 Personal belongings sent with patient. Report given to [ ]. Appropriate documentation sent with patient.
[2020-03-29] VITALS: BP 118/58; PULSE 67; RESP 20; TEMP 36.1; O2SAT 99
--- NOTE | 2020-03-29 | EST_ITS ---
Patient Info Name: Desmond Delcid Age: 65 years : 1955 Gender: Male Ht: 69 in Wt: 182 lbs BSA: 2.02 m2 HR: 70 bpm BP: 121 / 95 mmHg Heart Rhythm: Sinus Rhythm Technical Quality: Good Exam Date: 03/29/2020 11:52 AM Exam Location: [facility] Stress Patient Status: Inpatient Admit Date: 03/26/2020 Staff Ordering Physician: Flaquito Modi MD Attending Provider: Vipul Bynum PA-C Exercise Physician: Charli Grace MD Exam Type: CA stress gerry w NM Study Info Indications R07.9 - Chest pain, unspecified Summary 1. Please correlate with nuclear medicine images, reported separately. 2. No abnormal ST-T wave changes with lexiscan. Protocol: Lexiscan Stress ECG Details Stage: REST Duration (min): 0 min : 46 sec HR (bpm): 68 SBP (mmHg): --- DBP (mmHg): --- Stage: REST Duration (min): 2 min : 38 sec HR (bpm): 66 SBP (mmHg): 121 DBP (mmHg): 95 Stage: STAGE 1 Duration (min): 1 min : 0 sec HR (bpm): --- SBP (mmHg): 113 DBP (mmHg): 88 Stage: RECOVERY Duration (min): 1 min : 0 sec HR (bpm): 81 SBP (mmHg): 113 DBP (mmHg): 88 Stage: RECOVERY Duration (min): 2 min : 0 sec HR (bpm): --- SBP (mmHg): 113 DBP (mmHg): 88 Stage: RECOVERY Duration (min): 3 min : 0 sec HR (bpm): 78 SBP (mmHg): 100 DBP (mmHg): 74 Stage: RECOVERY Duration (min): 3 min : 6 sec HR (bpm): 79 SBP (mmHg): 100 DBP (mmHg): 74 Rest HR: 66 bpm Peak HR: 84 bpm Rest Sys BP: 121 mmHg Peak Sys BP: 113 mmHg Max Pred HR: 154 bpm % Max Pred HR: 55 % Target HR: 131 bpm Max RPP: 9,492 bpm*mmHg Target HR Summary: Hemodynamic response to exercise was normal BP Response: Normal blood pressure response Termination Reason: Completed protocol Cardiac Symptoms: None Total Time: 1 min : 0 sec Rest Sauceda BP: 95 mmHg Peak Sauceda BP: 88 mmHg Total Dose: 0.4 mg Resting ECG Normal sinus rhythm. Stress ECG No abnormal ST/T wave changes with exercise. Arrhythmias None. Report Signatures
[2020-03-29 05:02] VITALS: BP 105/57; PULSE 64; RESP 20; TEMP 36.1; O2SAT 96
[2020-03-29 08:25] LABS: Basophils Percent Auto 0.2 % (0.2-1.2); Eosinophils Absolute Auto 0.1 K/mm3 (0-0.3); Hematocrit 39.2 % (42.0-52.0); Hemoglobin 12.8 g/dL (14.0-18.0); Immature Granulocyte Absolute 0.06 K/mm3 (0.00-0.031); Immature Granulocyte Percent A 0.4 % (0-0.5); Lymphocytes Absolute Auto 2.25 K/mm3 (0.9-3.2); Lymphocytes Percent Auto 16.5 % (18.3-44.2); Mean Corpuscular HGB Conc 32.7 g/dl (32-36); Mean Corpuscular Volume 88.7 fl (80-100); Mean Platelet Volume 9.5 fl (7.4-10.4); Monocytes Absolute Auto 1.3 K/mm3 (0.1-0.6); Monocytes Percent Auto 9.5 % (2.6-8.5); Neutrophils Absolute Auto 9.9 K/mm3 (1.3-6.7); Neutrophils Percent Auto 72.4 % (45.5-73.1); Platelet Count Result 214 k/mm3 (150-375); Red Blood Count 4.42 M/mm3 (4.6-6.20); Red Cell Distribution Width 14.5 % (11.5-14.5); White Blood Count 13.7 K/mm3 (4.5-10.0)
--- NOTE | 2020-03-29 08:32 | PC.NURSE ---
Patient is requesting to have the Lexiscan done today while in the hospital. This nurse called AISHA Hinkle and per Vipul okay to proceed at this time especially since Cardiology states they can do it today. Called Deborah from Cardiology and they stated someone will be up to get the patient at 1100 and to hold all oral medications at this time.
[2020-03-29 08:38] LABS: Anion Gap 7 mmol/L (8-16); Blood Urea Nitrogen 19 mg/dL (9-20); Calcium 9.2 mg/dL (8.4-10.2); Carbon Dioxide 33 mmol/L (22-30); Chloride 95 mmol/L (98-107); Estimated CRCL calculation 72 ml/min; Estimated Glomerular Filt Rate > 60; Glucose 118 mg/dL (75-110); Magnesium 2.2 mg/dL (1.6-2.3); Potassium 4.1 mmol/L (3.4-5.0); Sodium 135 mmol/L (137-145)
--- NOTE | 2020-03-29 08:58 | WPDURCON ---
Assessment and Plan Assessment and plan (1) UTI (urinary tract infection): Code(s): N39.0 - Urinary tract infection, site not specified Status: Acute Assessment and Plan: Continue Ceftriaxone, ok to go home with oral antibiotics when stable. Likely caused by dehydration. Will get a AIDEN d/t ongoing pelvic/flank pain, but likely just residual pain from infection. He will follow up with Dr. Knight in a month or so to get a PSA/MALINA. PVR is normal. NO further evaluation needed. Urology Consult Note HPI Date Seen: 03/29/20 Requesting Physician: Vipul Bynum PA-C Primary Care Provider: Sam Espinoza MD Consult Narrative Narrative: Desmond Delcid is a 65 year old male who presented to the ER with c/o pelvic pain, bilateral flank pain, dysuria, urgency and frequency. He denied hesitancy and straining. He also had c/o arthralgias, SOB, fever of 101-102F and rhinorrhea. He was suspected to have COVID, but was negative. He recently had surgery on his left hand with Dr. Gregory and notes not having an appetite or drinking fluids for the past two weeks post operatively. He developed his urinary symptoms about 5 days ago, but is improving. His urine culture was positive and grew E-Coli, but is sensitive to the Ceftriaxone he has been on. He is afebrile and c/o continued bilateral flank pain, pelvic pain and some urgency, but overall symptoms have improved. His WBC is improved as well and is now 13.7, creatine is 1.10, preliminary blood cultures are negative. He is a patient of Dr. Knight who he sees for ED. He states he never has trouble with his urinary symptoms otherwise and denies hesitancy, straining, frequency or urgency. He has nocturia x 1 per night. His PVR on bladder scan was <300cc. He denies a history of kidney stones or chronic UTI's. He also states that it has been many years since his PCP has done a PSA or MALINA on him. Review of Systems Respiratory: Respiratory: Reports no additional respiratory complaints Gastrointestinal: Gastrointestinal: Reports abdominal pain, Denies nausea and Denies vomiting Genitourinary: Genitourinary: Denies hematuria, Reports dysuria, Reports flank pain, Reports urinary frequency, Denies urinary hesitancy and Reports urinary urgency [facility] Past Medical History Medical History Arthritis BMI 28.0-28.9,adult Colon polyps Degeneration of intervertebral disc, site unspecified DVT (deep venous thrombosis) Essential (primary) hypertension Gastro-esophageal reflux disease without esophagitis Hypertension Lumbago with sciatica Mixed hyperlipidemia Osteoarthritis of left knee Other irritable bowel syndrome Pulmonary embolism Rectal polyp TMJ (dislocation of temporomandibular joint) Toe fracture Surgical History Surgical History History of hand surgery Right, Knot removal Dr. Gregory S/P right unicompartmental knee replacement Family History Family History Mother Diabetes mellitus Family history of lung cancer Hypertension Dementia Septicemia Sibling Family history of malignant neoplasm of breast in first degree relative, Onset Age: 45 Breast cancer Social History Social History Smoking status: Never smoker Alcohol intake: current Drinks per week: 4 Substance use: never Substance use type: does not use Additional living arrangements comments: Additional occupation/education comments: [employer] Gender identity (if verbalized by the patient): Male Spiritual care concerns: No Agree to blood products: No Meds Home Medications and Allergies Home Medications Medication Instructions Recorded Confirmed Type telmisartan 80 1 tablet PO DAILY #90 tablet 02/24/19 03/27/20 Rx mg-hyd
--- NOTE | 2020-03-29 10:17 | PM.IMPN ---
Progress Note: A&P Assessment and Plan (1) Atypical chest pain: Code(s): R07.89 - Other chest pain Status: Acute Assessment and Plan: Chest pain appears MSK in nature, but will obtain stress test prior to discharge. CP has resolved Monitor Likely discharge today pending results F/u with PCP. (2) UTI (urinary tract infection): Code(s): N39.0 - Urinary tract infection, site not specified Status: Acute Assessment and Plan: UCx growing E. Coli sensitive to Rocephin Patient has had 2 doses of Rocephin thus far Will transition to PO cefdinir tomorrow; likely due 7 days total of antibiotics F/u with URology in 1 month per recommendations (3) Essential (primary) hypertension: Code(s): I10 - Essential (primary) hypertension Status: Acute Assessment and Plan: BP 100s sys this morning Continut home meds Subjective Date/time seen: 03/29/20 10:17 Interval history: Patient is a 65 yo M with history HTN, GERD, past DVT/PE who is seen in follow up for UTI and now resolved atypical chest pain. Patient states he feels reasonably well today. His chest pain has resolved and he attributed the pain to possibly a pulled muscle in his chest. He felt a bit feverish this morning but noted that he was afebrile during VS. He is noting some lower back pain this morning. Also noting some dysuria again today. No other complaints. Denies myalgias/arthralgias, dizziness, lightheadedness, current cp/palpitations, sob/cough, n/v/d/c, abd pain, changes in BMs, calf pain/swelling. Review of Systems Review of Systems: All systems reviewed & are unremarkable except as noted in HPI and below Exam Narrative: Exam Narrative: General: Patient resting in chair in no acute distress. HEENT: Normocephalic, EOMI, oral mucosa moist. Cardiovascular: Rate and rhythm are regular. No notable murmur, rub, or gallop. Respiratory: Lungs clear to auscultation all coley. Non-labored breathing. Abdomen: Soft, non-tender, non-distended, bowel sounds present. Extremities: Peripheral pulses intact. No edema. Neuro: No focal neurological deficits. Speech is clear. Objective Data Vital Signs Vital Signs: Last Vital Signs Temp 96.9 F L 03/29/20 05:02 Pulse 64 03/29/20 05:02 Resp 20 03/29/20 05:02 BP 105/57 L 03/29/20 05:02 Pulse Ox 96 03/29/20 05:02 Intake/Output Intake/Output: Intake & Output 03/26/20 03/27/20 03/28/20 03/29/20 23:59 23:59 23:59 23:59 Intake Total 504 420 9872 120 Output Total 1375 Balance 500 680 375 120 Meds/Results Medications: Active Medications Generic Name Dose Route Start Last Admin Trade Name Freq PRN Reason Stop Dose Admin Acetaminophen 650 mg 03/26/20 22:32 03/27/20 10:40 Acetaminophen 325 Mg Tablet PO 650 mg Q4H PRN Administration Mild Pain (1-3) or Fever Hydrocodone Bitart/Acetaminophen 1 tab 03/27/20 09:42 03/28/20 21:23 Hydrocodone/Acetaminophen (*Crx) 5-325 Mg Tablet PO 1 tab Q6H PRN Administration pain 7-10 Ascorbic Acid 500 mg 03/27/20 09:00 03/28/20 09:07 Ascorbic Acid 500 Mg Tablet PO 500 mg DAILY GILBERTO Administration Calcium Carbonate 500 mg 03/27/20 09:00 03/28/20 09:07 Calcium/Vitamin D 500 Mg Tablet PO 500 mg DAILY GILBERTO Administration Diazepam 5 mg 03/27/20 09:42 Diazepam (*Crx) 5 Mg Tablet PO HS PRN muscle spasm Hydrochlorothiazide 12.5 mg 03/27/20 09:00 03/28/20 09:07 Hydrochlorothiazide 12.5 Mg Capsule PO 04/27/20 09:01 12.5 mg DAILY GILBERTO Administration Ceftriaxone Sodium/Dextrose 1 gm in 50 mls @ 100 mls/hr 03/28/20 09:00 03/29/20 08:35 Rocephin 1 Gm/D5w 50 Ml IVPB 100 mls/hr Q24H GILBERTO Administration Multivitamins Therapeutic 1 tablet 03/27/20 09:00 03/28/20 09:07 Multivitamins Therapeutic Tab (*Bkc) PO 1 tablet REBECCA
[2020-03-29 11:23] LABS: Estimated CRCL calculation 66 ml/min; Estimated Glomerular Filt Rate > 60
[2020-03-29 11:23] LABS: Estimated CRCL calculation 66 ml/min; Estimated Glomerular Filt Rate > 60
[2020-03-29] MEDS: VITAMIN B COMPLEX CAPSULE 1 CAP PO (12:46)
[2020-03-29] MEDS: TELMISARTAN 40 MG TABLET 80 MG PO (12:46)
[2020-03-29] MEDS: MULTIVITAMINS THERAPEUTIC TAB (*BKC) 1 TABLET PO (12:47)
[2020-03-29] MEDS: ASCORBIC ACID 500 MG TABLET PO (12:47)
[2020-03-29] MEDS: hydroCHLOROthiazide 12.5 MG CAPSULE PO (12:47)
--- NOTE | 2020-03-29 13:55 | PM.DS ---
DS: Admitting Diagnosis Admitting Diagnosis Admitting Diagnosis: Atypical chest pain, fever, COVID PUI DS: Discharge Diagnosis Discharge Diagnosis (1) Atypical chest pain: Code(s): R07.89 - Other chest pain Status: Acute Assessment and Plan: Chest pain appears MSK in nature, but will obtain stress test prior to discharge. CP has resolved. Nuc stress test today showed normal myocardial perfusion at rest and during stress and left ventricular ejection fraction measuring >70%. D/c Home today F/u with PCP. (2) UTI (urinary tract infection): Code(s): N39.0 - Urinary tract infection, site not specified Status: Acute Assessment and Plan: UCx growing E. Coli sensitive to Rocephin Patient has had 2 doses of Rocephin thus far Will transition to PO cefdinir tomorrow; likely due 7 days total of antibiotics F/u with Urology in 1 month per recommendations (3) Essential (primary) hypertension: Code(s): I10 - Essential (primary) hypertension Status: Acute Assessment and Plan: BP 100s sys this morning Continut home meds DS: Summary Hospital Course Reason for hospitalization: Atypical chest pain, acute UTI Hospital Course: Date of arrival: 03/26/20 Date of discharge: 03/29/20 Patient is a 65 year old male male with history of hypertension who presented to the ED on 03/26 with complaints of chest pain and fever. While in the ED, patient was febrile (101.0) without tachycardia or hypotension. EKG showed nonspecific ST changes with borderline ST depression throughout; no ST elevation. CTA chest obtained and showed no signs of PE, nor pericardial effusion/pericarditis. He was found to have leukocytosis. ACS of concern and patient was to be admitted to trend troponins. Initial troponin was negative. Patient swabbed for COVID and was negative. UA somewhat suspicious for UTI but no antibiotics were not initiated as this felt to be less likely at the time. BCx drawn at that time (NGTD x 2 after 3 days) Patient was admitted to the hospitalist service for further management/treatment. Patient was initiated on Rocephin on 03/28 after UCx grew E. coli; this was later to be found sensitive to rocephin. His chest pain had resolved, however, it was felt nuc med stress test was recommended given his atypical chest pain; this was found to be unremarkable on day of discharge. Urology was consulted given his urinary symptoms. Renal US was obtained and found small right renal cyst as well as diffuse bladder wall thickening. He was placed on Flomax per Urology recommendations and was to follow up in 1 month after discharge. He was to continue on cefdinir for 5 additional days to complete 7 day total course of antibiotics for his UTI. Leukocytosis had improved by day of discharge. He was afebrile since his arrival to ED; VSS during his stay. Plan was for him to follow up with his PCP after discharge. CBC to be completed in 1 week. Patient agreeable and comfortable with plan for discharge. Patient hemodynamically stable and in improved condition for discharge on 03/29 Status at Discharge Overall status at discharge: patient is progressing back to baseline Time Spent with Patient Time attestation: Total time spent providing and/or coordinating discharge services: Time spent: Greater than 30 minutes Exam Narrative: Exam Narrative: General: Patient resting in chair in no acute distress. HEENT: Normocephalic, EOMI, oral mucosa moist. Cardiovascular: Rate and rhythm are regular. No notable murmur, rub, or gallop. Respiratory: Lungs clear to auscultation all coley. Non-labored breathing. Abdomen: Soft, non-tender, non-distended, bowel sounds present. Extremities: Peripheral pulses intact. No edema. Neuro: No focal neurological deficits. S
== END 2020-03-29 15:00 | disposition home or self-care (01) ==
LOC: ANHED 22:47 → ANHIMU 23:58 → ANH2MED 03-28 21:19
PROVIDERS: Family Medicine; Physician Assistant; Admitting Provider Student in an Organized Health Care Education/Training Program; Emergency Provider Emergency Medicine; PCP Family Medicine; Visit Provider Internal Medicine
DX: R07.89 Other chest pain (principal); N39.0 Urinary tract infection, site not specified; B96.20 Unspecified Escherichia coli [E. coli] as the cause of diseases classified elsewhere; Z20.828 Contact with and (suspected) exposure to other viral communicable diseases; I10 Essential (primary) hypertension; D72.829 Elevated white blood cell count, unspecified; K21.9 Gastro-esophageal reflux disease without esophagitis; N28.1 Cyst of kidney, acquired; Z86.711 Personal history of pulmonary embolism
CPT/HCPCS: 36415; 71045; 71275; 76775; 78452; 80048; 80053; 81001; 83605; 83735; 83880; 84484; 85025; 85380; 85610; 85730; 87040; 87077; 87086; 87088; 87186; 87635; 93005; 93017; 96361; 96365; 96374; 96375; 99285; A9270; A9502; C9803; G0378; J0696; J2270; J2405; J2765; J2785; J7040; Q9967; U0003

== ENCOUNTER 2020-04-19 15:26 | Outpatient (CLI) | payer OTHER, SELFPAY ==
[2020-04-19 15:59] LABS: Hemoglobin A1C 6.4 % (<5.7)
[2020-04-19 16:10] LABS: Alanine Aminotransferase 23 U/L (4-50); Alkaline Phosphatase 49 U/L (38-126); Anion Gap 5 mmol/L (8-16); Aspartate Amino Transferase 28 U/L (17-59); Bilirubin,Total 0.4 mg/dL (0.2-1.3); Blood Urea Nitrogen 15 mg/dL (9-20); Calcium 9.5 mg/dL (8.4-10.2); Carbon Dioxide 35 mmol/L (22-30); Chloride 99 mmol/L (98-107); Estimated Glomerular Filt Rate > 60; Glucose 114 mg/dL (75-110); Sodium 139 mmol/L (137-145)
[2020-04-19 16:40] LABS: Prostate Specific Antigen 3.9 ng/mL (< OR = 4.0)
== END 2020-04-19 15:27 | disposition home or self-care (01) ==
LOC: ANHLAB 15:28
PROVIDERS: PCP Family Medicine; Visit Provider Family Medicine
DX: N39.0 Urinary tract infection, site not specified (principal); E78.2 Mixed hyperlipidemia; E74.39 Other disorders of intestinal carbohydrate absorption; I10 Essential (primary) hypertension; N40.0 Benign prostatic hyperplasia without lower urinary tract symptoms
CPT/HCPCS: 36415; 80053; 83036; 84153; G0103

== ENCOUNTER 2020-08-31 10:10 | Outpatient (CLI) | payer OTHER, SELFPAY ==
--- NOTE | ~2020-08-31 | XR_ITS ---
EXAMINATION: XR knee LT 3V DATE: 08/31/2020 10:30 INDICATION: Left knee pain. TECHNIQUE: 3 views of left knee were obtained. COMPARISON: Left knee radiographs 08/24/2019 FINDINGS: Bone alignment is normal. No fracture. There is moderate osteoarthritis of medial compartme nt and mild osteoarthritis of lateral and patellofemoral compartments. There is a moderate-sized knee joint effusion. IMPRESSION: 1. Moderate left knee osteoarthritis. 2. Moderate-sized left knee joint effusion. Reviewed, dictated and finalized at location A.
== END 2020-08-31 10:11 | disposition home or self-care (01) ==
PROVIDERS: PCP Family Medicine; Visit Provider Orthopaedic Surgery
DX: M17.12 Unilateral primary osteoarthritis, left knee (principal); M25.462 Effusion, left knee
CPT/HCPCS: 73562

== ENCOUNTER 2020-10-12 15:46 | Outpatient (CLI) | payer OTHER, SELFPAY ==
--- NOTE | ~2020-10-12 | MR_ITS ---
. EXAMINATION: MR lumbar spine wo con DATE: 10/12/2020 16:26 INDICATION: Low back pain. Degenerative disc disease. TECHNIQUE: Magnetic resonance imaging (MRI) of the lumbar spine was performed without intravenous con trast. Sequences included sagittal T2-weighted FSE, sagittal T2-weighted FS FSE, sagittal T1-weighted FSE, and axial T2-weighted FSE. COMPARISON: None FINDINGS: There is 5 degrees levocurvature of lumbar spine. Vertebral body heights are normal. There is mildly decreased disc height at L4-L5 and severely decreased disc height at L5-S1 with endplate re modeling. Epidural lipomatosis is noted. The distal spinal cord signal intensity is normal. The conus medullaris is at T12-L1. The following disc levels are specifically discussed: L1-L2: The disc does not extend beyond the endplate margin. There is no facet joint osteoarthritis. T here is no neural foraminal stenosis. There is no central canal stenosis. L2-L3: The disc is mildly bulging. There is no facet joint osteoarthritis. There is mild bilateral ne ural foraminal stenosis. There is no central canal stenosis. L3-L4: The disc is mildly bulging. There is moderate bilateral facet joint osteoarthritis. There is m ild bilateral neural foraminal stenosis. There is mild central canal stenosis. L4-L5: The disc is bulging and has an annular fissure. There is moderate right and mild left facet jin int osteoarthritis. There is mild bilateral neural foraminal stenosis. There is moderate central elijah l stenosis. L5-S1: The disc is bulging and has an annular fissure. There is mild bilateral facet joint osteoarthr itis. There is moderate bilateral neural foraminal stenosis. There is mild central canal stenosis. IMPRESSION: 1. Severe lower lumbar spondylosis. Reviewed, dictated and finalized at location A.
== END 2020-10-12 15:47 | disposition home or self-care (01) ==
PROVIDERS: PCP Family Medicine
DX: M51.36 Other intervertebral disc degeneration, lumbar region (principal); M47.816 Spondylosis without myelopathy or radiculopathy, lumbar region
CPT/HCPCS: 72148

== ENCOUNTER 2020-11-22 09:37 | Outpatient (CLI) | payer OTHER, SELFPAY ==
[2020-11-22 09:57] LABS: Basophils Absolute Auto 0.1 K/mm3 (0.0-0.1); Eosinophils Absolute Auto 0.2 K/mm3 (0-0.3); Eosinophils Percent Auto 2.5 % (0-4.4); Hematocrit 44.4 % (42.0-52.0); Hemoglobin 13.7 g/dL (14.0-18.0); Immature Granulocyte Absolute 0.01 K/mm3 (0.00-0.031); Immature Granulocyte Percent A 0.2 % (0-0.5); Lymphocytes Absolute Auto 3.31 K/mm3 (0.9-3.2); Lymphocytes Percent Auto 55.2 % (18.3-44.2); Mean Corpuscular HGB Conc 30.9 g/dl (32-36); Mean Corpuscular Hemoglobin 28.4 pg (26-34); Mean Corpuscular Volume 91.9 fl (80-100); Mean Platelet Volume 9.4 fl (7.4-10.4); Monocytes Absolute Auto 0.5 K/mm3 (0.1-0.6); Monocytes Percent Auto 7.8 % (2.6-8.5); Neutrophils Percent Auto 33.3 % (45.5-73.1); Platelet Count Result 237 k/mm3 (150-375); Red Blood Count 4.83 M/mm3 (4.6-6.20); Red Cell Distribution Width 14.8 % (11.5-14.5)
[2020-11-22 10:09] LABS: Hemoglobin A1C 6.2 % (<5.7)
[2020-11-22 10:14] LABS: Alanine Aminotransferase 39 U/L (4-50); Albumin Level 4.7 g/dL (3.5-5.1); Alkaline Phosphatase 45 U/L (38-126); Anion Gap 9 mmol/L (8-16); Aspartate Amino Transferase 39 U/L (17-59); Bilirubin,Total 0.2 mg/dL (0.2-1.3); Blood Urea Nitrogen 13 mg/dL (9-20); Calcium 9.6 mg/dL (8.4-10.2); Carbon Dioxide 31 mmol/L (22-30); Chloride 98 mmol/L (98-107); Cholesterol 191 mg/dL (0-200); Estimated Glomerular Filt Rate > 60; Glucose 107 mg/dL (65-110); HDL Direct 27 mg/dL; Potassium 4.6 mmol/L (3.4-5.0); Sodium 138 mmol/L (137-145); Triglycerides 170 mg/dL (<150)
[2020-11-22 10:24] LABS: LDL Cholesterol Direct 126 mg/dL
[2020-11-22 10:51] LABS: Free T4 Free Thyroxine 0.83 ng/mL (0.78-2.19)
== END 2020-11-22 09:38 | disposition home or self-care (01) ==
PROVIDERS: PCP Family Medicine; Visit Provider Family Medicine
DX: D72.825 Bandemia (principal); E74.39 Other disorders of intestinal carbohydrate absorption; E78.2 Mixed hyperlipidemia; I10 Essential (primary) hypertension; Z79.899 Other long term (current) drug therapy; R60.9 Edema, unspecified; Z12.5 Encounter for screening for malignant neoplasm of prostate
CPT/HCPCS: 36415; 80053; 80061; 83036; 84153; 84439; 84443; 85025; G0103

== ENCOUNTER 2020-12-01 00:40 | Day surgery (SDC) | payer OTHER, SELFPAY ==
[2020-11-22 12:00] VITALS: BMI 29.6
[2020-12-01 08:14] VITALS: BP 138/80; PULSE 66; RESP 16; TEMP 36.7; O2SAT 97
[2020-12-01 08:26] LABS: Glucose Point of Care 111 mg/dl (65-105)
--- NOTE | 2020-12-01 08:29 | WPDGICN ---
Assessment and Plan Assessment and plan (1) History of colon polyps: Code(s): Z86.010 - Personal history of colonic polyps Status: Acute Assessment and Plan: Patient has a history of colon polyps. Currently no specific symptoms. Plan is for surveillance colonoscopy at this time. Further recommendations will be given after endoscopy. GI Consult Note Consult date/time: 12/01/20 08:29 HPI: Desmond Delcid is a 65 year old male Presents for surveillance colonoscopy. Patient reports that his current weight appetite bowel movements are normal. He denies any abdominal pain. He was found to have colon polyps initially in 2009. Most recent colonoscopy 2012 was unremarkable. Patient presents today for surveillance examination. He reports his current weight appetite bowel movements are normal. He denies abdominal pain. Family history is noncontributory. Patient has noted no blood in his stools. Plan to proceed with screening colonoscopy at this time. Review of Systems Review of Systems: All systems reviewed & are unremarkable except as noted in HPI and below PMFSH Past Medical History Medical History Arthritis BMI 28.0-28.9,adult Colon polyps Degeneration of intervertebral disc, site unspecified DVT (deep venous thrombosis) Essential (primary) hypertension Gastro-esophageal reflux disease without esophagitis Hypertension Lumbago with sciatica Mixed hyperlipidemia Osteoarthritis of left knee Other irritable bowel syndrome Pulmonary embolism Rectal polyp TMJ (dislocation of temporomandibular joint) Toe fracture Surgical History Surgical History History of hand surgery Right, Knot removal Dr. 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[employer] Gender identity (if verbalized by the patient): Male Spiritual care concerns: No Agree to blood products: No Meds Home Medications and Allergies Home Medications Medication Instructions Recorded Confirmed Type Glucosamine Chondroitin 3 cap PO DAILY 03/04/20 12/01/20 History ascorbate calcium (vitamin C) 500 mg PO DAILY 03/04/20 12/01/20 History calcium carbonate-vitamin D3 1 tablet PO DAILY 03/04/20 12/01/20 History multivitamin 1 tablet PO DAILY 03/04/20 12/01/20 History vitamin B complex 1 cap PO DAILY 03/04/20 11/22/20 History telmisartan 80 1 tablet PO DAILY #90 tablet 04/19/20 12/01/20 Rx mg-hydrochlorothiazide 12.5 mg tablet metformin 500 mg tablet,extended 1,000 mg PO DAILY #60 tablet 05/04/20 12/01/20 Rx release 24 hr tramadol 50 mg tablet 100 mg PO Q6H PRN #240 tablet 11/08/20 12/01/20 Rx omega-3 fatty acids [Fish Oil] 2 cap PO DAILY 11/22/20 12/01/20 History Allergies Allergy/AdvReac Type Severity Reaction Status Date / Time No Known Allergies Allergy Verified 12/01/20 08:27 Exam Narrative: Physical exam reveals patient be alert. Vital signs stable. HEENT exam is unremarkable. Patient is anicteric. Lungs are clear to auscultation and percussion. Heart is without murmur or extra sounds. Abdominal exam bowel sounds are present soft nontender with no hepatosplenomegaly. Digital exte
[2020-12-01] MEDS: LACTATED RINGERS 1,000 ML 150 ML IV CONT (08:35)
--- NOTE | 2020-12-01 09:01 | WPDANESEPPF ---
Anes - Initial Pre Proc Eval Procedure: Operation Date: 12/01/20 09:30 Proposed Procedures p Screening Colonoscopy - Gio Beavers MD Date/Time: 12/01/20 09:01 Surgeon: Gio Beavers MD Pre Op Diagnosis: hx of colon polyps Patient Data Age: 65 Gender: M Height: 1.75 m Weight: 92.4 kg Last Vital Signs Temp 98.0 F 12/01/20 08:14 Pulse 66 12/01/20 08:14 Resp 16 12/01/20 08:14 BP 138/80 12/01/20 08:14 Pulse Ox 97 12/01/20 08:14 Allergies Allergy/AdvReac Type Severity Reaction Status Date / Time No Known Allergies Allergy Verified 12/01/20 08:27 Home Medications Medication Instructions Recorded Confirmed Type Glucosamine Chondroitin 3 cap PO DAILY 03/04/20 12/01/20 History ascorbate calcium (vitamin C) 500 mg PO DAILY 03/04/20 12/01/20 History calcium carbonate-vitamin D3 1 tablet PO DAILY 03/04/20 12/01/20 History multivitamin 1 tablet PO DAILY 03/04/20 12/01/20 History vitamin B complex 1 cap PO DAILY 03/04/20 12/01/20 History telmisartan 80 1 tablet PO DAILY #90 tablet 04/19/20 12/01/20 Rx mg-hydrochlorothiazide 12.5 mg tablet metformin 500 mg tablet,extended 1,000 mg PO DAILY #60 tablet 05/04/20 12/01/20 Rx release 24 hr tramadol 50 mg tablet 100 mg PO Q6H PRN #240 tablet 11/08/20 12/01/20 Rx omega-3 fatty acids [Fish Oil] 2 cap PO DAILY 11/22/20 12/01/20 History Laboratory Tests 12/01/20 08:21 POC Capillary Glucose 111 mg/dl H mg/dl (65-105) Patient hx anesthesia problems: none Family hx anesthesia problems: none PMFSH Past Medical History Medical History Arthritis BMI 28.0-28.9,adult Colon polyps Degeneration of intervertebral disc, site unspecified DVT (deep venous thrombosis) Essential (primary) hypertension Gastro-esophageal reflux disease without esophagitis Hypertension Lumbago with sciatica Mixed hyperlipidemia Osteoarthritis of left knee Other irritable bowel syndrome Pulmonary embolism Rectal polyp TMJ (dislocation of temporomandibular joint) Toe fracture Surgical History Surgical History History of hand surgery Right, Knot removal Dr. 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[employer] Gender identity (if verbalized by the patient): Male Spiritual care concerns: No Agree to blood products: No Anes - Eval Final PreProcedure Day of Procedure 12/01/20 09:01 Patient weight: overweight Heart: regular rate and rhythm Lungs: clear to auscultation Airway: Mallampati scale class II Neurological: alert and oriented Last oral intake: >/= 8 hours ASA classification: III Emergent: no Anesthetic plan: proceed Anesthesia type and monitoring: general GIVS and standard monitoring Informed Consent: The patient's anesthetic plan and its attendant risks and benefits were discussed with the patient/family/POA. Questions were solicited and answers provided to the satisfaction of the patient/family/POA.
[2020-12-01 09:26] VITALS: BP 103/55; PULSE 56; RESP 18; O2SAT 99
[2020-12-01 09:36] VITALS: BP 126/78; PULSE 60; RESP 22; O2SAT 99
[2020-12-01 09:46] VITALS: BP 143/78; PULSE 64; RESP 20; O2SAT 100
== END 2020-12-01 10:03 | disposition home or self-care (01) ==
PROVIDERS: PCP Family Medicine; Visit Provider Internal Medicine Gastroenterology
PROC: 0DJD8ZZ Inspection of Lower Intestinal Tract, Via Natural or Artificial Opening Endoscopic (ICD-10-PCS; CPT 45378; principal; 2020-12-01 09:30)
DX: Z12.11 Encounter for screening for malignant neoplasm of colon (principal); Z86.010 Personal history of colon polyps; I10 Essential (primary) hypertension; E87.2 Acidosis; K21.9 Gastro-esophageal reflux disease without esophagitis; K58.9 Irritable bowel syndrome, unspecified; Z79.84 Long term (current) use of oral hypoglycemic drugs; Z86.718 Personal history of other venous thrombosis and embolism; Z86.711 Personal history of pulmonary embolism
CPT/HCPCS: 45378; 82948; J2704; J7120

== ENCOUNTER 2020-12-26 12:30 | Outpatient (RCR) | payer OTHER, SELFPAY ==
--- NOTE | 2020-11-29 11:26 | PTOPEVAL ---
PHYSICAL THERAPY EVALUATION Thank you for referring Desmond Delcid to [facility] Kasi was evaluated for the dx of low back pain with tessa. LE radiculopathy. The patient is scheduled to be seen for therapy?2 x/week for 4 weeks. Please review, sign, date and return this plan of care KAITLYNN. I agree with and certify that the following plan of care is medically necessary. Referring Physician Date Attending Provider: Keanu Solomon *PT Outpatient Evaluation Start: 11/29/20 09:07 Freq: Status: Active Protocol: Document 11/29/20 09:07 MLV (Rec: 11/29/20 09:48 MLV [id number]) Therapy Assessment Status Assessment Status Assessment Status Evaluation Evaluation Information Problem Diagnosis low back pain with tessa radiculopathy Onset worse in last 2 years Additional Evaluation Detail The patient reports years of low back pain but it has gotten worse over time and now has constant back pain with tessa LE pain and tingling. 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 The pain is worse in the evening after work and worse with sitting for more than 30 minutes. Diagnostic Tests X-Rays For This Problem Yes: mild spinal OA MRI For This Problem Yes: nerve compression Pain Assessment Timing of Pain Assessment Timing of Pain Assessment Assessment Pain Scale Pain Scale Used Numeric (1 - 10) Self Report Pain Assessment Bilateral Leg(s) Reported Pain Level 6 Pain Description Tingling Other Pain Description intensity of tingling after workday rated 8 of 10 Pain Aggravating Factors Exercise/Activity,Prolonged Position,Weight Bearing/ Standing Lower Back Reported Pain Level 5 Pain Description Aching Pain Frequency Acute,Chronic,Continuous Other Pain Description pain after workday is 8 of 10 Pain Aggravating Factors Exercise/Activity,Lifting, Prolonged Position Pain Score Pain Score 5,6: Self Report Interventions Used Interventions Used By Clinicians Education,Exercise,Heat, Traction Pain Relief Interventions Used By Ice,Inactivity/Rest,Medication Patient Position Change Other Alleviating Interventions tramadol sc
--- NOTE | 2020-12-05 16:30 | PCPTNOTE ---
Patient did not show up for scheduled appointment this date; called and patient stated he just forgot and apologized. Reminded about appointment for Saturday12/07/20 @14:30.
--- NOTE | 2020-12-15 15:54 | PCPTNOTE ---
Patient did not show up for scheduled appointment this date. Called Pt, left voicemail about missed appointment and upcoming on 12/20/20 @ 13:15.
--- NOTE | 2020-12-26 13:01 | PCPTNOTE ---
Patient did not show up for scheduled appointment this date. Called pt and he reports a soreness for 2 days following his last visit. The patient is scheduled to have back surgery on Jan 16 and agrees it would be best to cx therapy visits and resume if he receives an order for therapy after his surgery. DC PT at this time.
--- NOTE | 2020-12-26 13:03 | PCPTNOTE ---
PHYSICAL THERAPY DISCHARGE Attending Provider: Keanu Solomon Patient:Desmond Delcid Date of :1955 Patient has not returned for any further treatments since 12/20/2020, the pt is scheduled to have back surgery, therefore he will be discharged at this time. Patient?s initial visit was on 11/29/2020 08:45 and he had a total of 4 visits. The goals have been partially met. Thank you for referring this patient to [facility]. Please review, sign, date and return this discharge summary KAITLYNN. I have been updated about the patient's current status and I agree with discharge from the above service at this time. Referring Physician Date
== END 2020-12-26 17:44 | disposition home or self-care (01) ==
LOC: ANHPT 12:30
PROVIDERS: PCP Family Medicine
DX: M54.9 Dorsalgia, unspecified (principal); M48.00 Spinal stenosis, site unspecified
CPT/HCPCS: 97012; 97110; 97140; 97162

== ENCOUNTER 2021-03-23 09:00 | Outpatient (RCR) | payer OTHER, SELFPAY ==
--- NOTE | 2021-02-14 08:54 | PTOPEVAL ---
Thank you for referring Desmond Delcid to [facility].? The patient is scheduled to be seen for therapy? 3 x/week for 3 weeks. Please review, sign, date and return this plan of care KAITLYNN. I agree with and certify that the following plan of care is medically necessary. Referring Physician Date Attending Provider: Keanu Solomon Problem Diagnosis s/p laminectomy and discectomy Onset 01/16/21 Additional Evaluation Detail He had been having back pain for 15 yrs prior to his surgery. He received previous therapy for his back this year but no relief in his symptoms. Subjective Information He is performing limited Query Text:As Reported By Patient/ stretches since his surgery. Family He is able to don his shoes/ socks again, but with pain. He does not perform a walking program, but has been going to the store with his occasionally. He is able to lift light objects without difficulty. His restrictions is 10#. He reports limitations with prolonged sitting or standing > 1 hr. Reports limitations with sleeping due to pain. 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 Reports he had increased pain with work task due activity requirement. Reports the pain in greater in the morning. Also c/o tingling of left low back, buttock region with scar tightness. Previous Treatments Previous Treatments For This Problem Nov-Dec 2020 Pain Assessment Lower Back Reported Pain Level 4 Pain Description Aching,Tingling Pain Frequency Chronic Lowest Pain Intensity 3 Greatest Pain Intensity 5 Pain Aggravating Factors ADL's,Bending,Exercise/ Activity,Lifting,Sitting, Walking,Weight Bearing/ Standing Cervical and Lumbar ROM Lumbar ROM Lumbar Flexion Active Mid Gutierrez:Hands to: Lateral Fle
--- NOTE | 2021-02-16 08:18 | PCPTNOTE ---
Patient did not show up for scheduled appointment this date. Called & had to leave a message.
--- NOTE | 2021-02-24 09:00 | PCPTNOTE ---
Patient called & cancelled scheduled appointment this date due to not being able to make it today.
--- NOTE | 2021-02-27 08:34 | PCPTNOTE ---
Patient came in 20 mins late & had to cancelled today's scheduled appointment this date due to limited on time.
--- NOTE | 2021-03-10 08:59 | PTOPEVAL ---
Physical Therapy Update Thank you for referring Desmond Delcid to [facility]. See summary below for progress and update information. ? The patient is scheduled to be seen for therapy? 2 x/week for 3 weeks. Please review, sign, date and return this plan of care KAITLYNN. I agree with and certify that the following plan of care is medically necessary. Referring Physician Date Attending Provider: Keanu Solmoon Problem Diagnosis s/p laminectomy and discectomy Onset 01/16/21 Additional Evaluation Detail He had been having back pain for 15 yrs prior to his surgery. He received previous therapy for his back this year but no relief in his symptoms. 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. Subjective Information He is not performing his HEP Query Text:As Reported By Patient/ except when he attend therapy. Family He remains on lifting restrictions. He cont to have tingling into his legs constantly, but with with slight decreased intensity. He remains on pain medication for his pain. He has increased pain with prolonged standing, prolonged bending, repeated lifting, moving objects. Pain Assessment Lower Back Reported Pain Level 4 Pain Description Aching,Radiating,Tingling Pain Radiation Left Leg,Right Leg Pain Frequency Chronic,Continuous Lowest Pain Intensity 2 Greatest Pain Intensity 4 Pain Aggravating Factors ADL's,Bending,Exercise/ Activity,Lifting,Prolonged Position,Sitting,Walking, Weight Bearing/Standing Cervical and Lumbar ROM Lumbar ROM Lumbar Flexion Active Ankle:Hands to: Lateral Flexion lateral knee joint line:Active Hands to: Lumbar Comments 75% trunk ext, no pain 80% trunk flex- increased pain from muscles 100% trunk rotation, slight pain with movement to left Lower Extremity Range of Motion General Lower Extremity Range of Motion Gross Lower Extremity Range of Motion passive ROM: Comments left hip flex: 105 dg, right: 105 dg -no pain Cervical and Lumbar Muscle Testing Lumbar Strength
--- NOTE | 2021-03-14 07:48 | PCPTNOTE ---
Patient did not show up for scheduled appointment this date. Pt called at 7:48 to say he was unable to make his 730 visit due to stuck at work.
--- NOTE | 2021-03-28 08:07 | PCPTNOTE ---
Patient called & cancelled today's & his re-eval scheduled appointment this date due to having increased back pain & is going back to call the surgeon.
--- NOTE | 2021-04-18 10:17 | PCPTNOTE ---
Admitting Provider: Attending Provider: Keanu Solomon Patient:Desmond Delcid Date of :1955 Physical Therapy Discharge Note Patient has not returned for any further treatments since 03/23/2021, therefore he will be discharged at this time. He called to cancel his follow up visits due to changes in his pain. Patient?s initial visit was on 02/14/2021 07:30 and he had a total of 10 visits. The goals have been partially met. He has been instructed in a HEP. Thank you for referring this patient to [facility]. Please review, sign, date and return this discharge summary KAITLYNN. I have been updated about the patient's current status and I agree with discharge from the above service at this time. Referring Physician Date
== END 2021-04-19 08:57 | disposition home or self-care (01) ==
LOC: ANHPT 09:00
PROVIDERS: PCP Family Medicine
DX: Z47.89 Encounter for other orthopedic aftercare (principal)
CPT/HCPCS: 97110; 97140; 97162; 97530

== ENCOUNTER 2021-05-29 13:03 | Emergency (ER) | payer OTHER, SELFPAY ==
--- NOTE | ~2021-05-29 | XR_ITS ---
XR hand LT min 3V DATE: 05/29/2021 13:39 INDICATION: Hand injury TECHNIQUE: 3 views COMPARISON: None FINDINGS: No fracture or dislocation, periosteal reaction or bone destruction is detected. Mild osteoarthritis is noted at the first carpometacarpal joint and occasional interphalangeal joints . IMPRESSION: No fracture or dislocation Reviewed, dictated and finalized at location B. 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
[2021-05-29 13:07] VITALS: BP 196/83; PULSE 65; RESP 14; TEMP 36; O2SAT 100
--- NOTE | 2021-05-29 13:27 | ED.UPPEXIN ---
HPI - Extremity Injury (Upper) General Chief Complaint: Extremity Injury, Upper Stated Complaint: hand pain Time Seen by Provider: 05/29/21 13:16 Source: patient Mode of arrival: ambulatory Limitations: no limitations History of Present Illness HPI narrative: Patient presenting to the ER for evaluation of left hand injury. Pt reporting pain is 4/10, with decreased strength secondary to pain with movement. 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 Pt without bruising. He reports mild swelling. No open wounds or bleeding. Pt is right hand dominant. He reports radiation of pain into his left elbow with movement of the left hand. Denies elbow trauma, swelling, bruising. Related Data Home Medications Medication Instructions Recorded Confirmed Glucosamine Chondroitin 3 cap PO DAILY 03/04/20 05/10/21 ascorbate calcium (vitamin C) 500 mg PO DAILY 03/04/20 05/10/21 calcium carbonate-vitamin D3 1 tablet PO DAILY 03/04/20 05/10/21 multivitamin 1 tablet PO DAILY 03/04/20 05/10/21 vitamin B complex 1 cap PO DAILY 03/04/20 05/10/21 omega-3 fatty acids [Fish Oil] 2 cap PO DAILY 11/22/20 05/10/21 Allergies Allergy/AdvReac Type Severity Reaction Status Date / Time No Known Allergies Allergy Verified 05/29/21 13:09 Review of Systems Review of Systems: CONSTITUTIONAL: Denies fever CARDIOVASCULAR: Denies chest pain RESPIRATORY: Denies cough or dyspnea. GASTROINTESTINAL: Denies abdominal pain SKIN: Denies rash MUSCULOSKELETAL: Denies back pain, reports left hand pain NEUROLOGIC: Denies headache [facility] Past Medical History Medical History Arthritis BMI 28.0-28.9,adult Colon polyps Degeneration of intervertebral disc, site unspecified DVT (deep venous thrombosis) Essential (primary) hypertension Gastro-esophageal reflux disease without esophagitis Hypertension Lumbago with sciatica Mixed hyperlipidemia Osteoarthritis of left knee Other irritable bowel syndrome Pulmonary embolism Rectal polyp TMJ (dislocation of temporomandibular joint) Toe fracture Surgical History Surgical History History of hand surgery Right, Knot removal Dr. 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 EYES: PERRLA and EOMI. ENT: Nares clear, no rhinorrhea or epistaxis. Mucous membranes moist. NECK: Supple. CHEST: No respiratory distress, breathing even and non labored HEART: Regular rate, sinus rhythm ABDOMEN:Non distended, non tender EXTREMITIES: Normal range of motion. No edema. Pt with mild edema dorsum of left hand. Intact radial pulse 2+. Intact sensation m/u/r nerve distribution. Capillary refill less than 3 seconds. No abrasion no ecchymoses. SKIN: Warm, dry, no rash. NEURO:No focal deficits. Alert and oriented x3 Course Vital Signs Vital signs: Vital Signs Temperature 36.0 C L 05/29/21 13:07 Pulse Rate 65 05/29/21 13:07 Respiratory Rate 14
== END 2021-05-29 14:09 | disposition home or self-care (01) ==
PROVIDERS: Emergency Provider Emergency Medicine; PCP Family Medicine
DX: S63.92XA Sprain of unspecified part of left wrist and hand, initial encounter (principal); I10 Essential (primary) hypertension; E78.2 Mixed hyperlipidemia; M17.12 Unilateral primary osteoarthritis, left knee; K21.9 Gastro-esophageal reflux disease without esophagitis; K58.9 Irritable bowel syndrome, unspecified; Z86.010 Personal history of colon polyps; Z86.718 Personal history of other venous thrombosis and embolism; Z86.711 Personal history of pulmonary embolism; W31.89XA Contact with other specified machinery, initial encounter
CPT/HCPCS: 73130; 99283

== ENCOUNTER 2021-06-15 07:15 | Outpatient (CLI) | payer OTHER, SELFPAY ==
[2021-06-15 08:20] LABS: Basophils Percent Auto 0.7 % (0.2-1.2); Eosinophils Absolute Auto 0.2 K/mm3 (0-0.3); Eosinophils Percent Auto 3.3 % (0-4.4); Hemoglobin 13.6 g/dL (14.0-18.0); Lymphocytes Absolute Auto 3.06 K/mm3 (0.9-3.2); Lymphocytes Percent Auto 55.8 % (18.3-44.2); Mean Corpuscular HGB Conc 32.4 g/dl (32-36); Mean Corpuscular Hemoglobin 29.1 pg (26-34); Mean Corpuscular Volume 89.7 fl (80-100); Mean Platelet Volume 9.9 fl (7.4-10.4); Monocytes Absolute Auto 0.6 K/mm3 (0.1-0.6); Neutrophils Absolute Auto 1.7 K/mm3 (1.3-6.7); Neutrophils Percent Auto 30.2 % (45.5-73.1); Platelet Count Result 223 k/mm3 (150-375); Red Blood Count 4.68 M/mm3 (4.6-6.20); Red Cell Distribution Width 14.6 % (11.5-14.5); White Blood Count 5.5 K/mm3 (4.5-10.0)
[2021-06-15 08:26] LABS: Hemoglobin A1C 6.3 % (<5.7)
[2021-06-15 08:55] LABS: Creatinine Urine 198.5 mg/dL
[2021-06-15 08:58] LABS: MALB Creatinine Ratio 5.3 mg/g (0-30); Microalbumin Urine Random 10.6 mg/L (0-16.7)
[2021-06-15 10:24] LABS: Free T4 Free Thyroxine 0.86 ng/mL (0.78-2.19)
[2021-06-15 10:29] LABS: Alanine Aminotransferase 31 U/L (4-50); Albumin Level 4.4 g/dL (3.5-5.1); Alkaline Phosphatase 46 U/L (38-126); Anion Gap 5 mmol/L (8-16); Aspartate Amino Transferase 42 U/L (17-59); Bilirubin,Total 0.5 mg/dL (0.2-1.3); Blood Urea Nitrogen 19 mg/dL (9-20); Calcium 8.8 mg/dL (8.4-10.2); Carbon Dioxide 28 mmol/L (22-30); Chloride 101 mmol/L (98-107); Cholesterol 169 mg/dL (0-200); Estimated Glomerular Filt Rate > 60; Glucose 115 mg/dL (65-110); HDL Direct 25 mg/dL; Sodium 134 mmol/L (137-145); Triglycerides 136 mg/dL (<150)
[2021-06-15 10:40] LABS: LDL Cholesterol Direct 124 mg/dL
[2021-06-15 10:58] LABS: Prostate Specific Antigen 0.7 ng/mL (< OR = 4.0)
== END 2021-06-15 07:16 | disposition home or self-care (01) ==
LOC: ANHLAB 07:19
PROVIDERS: PCP Family Medicine; Visit Provider Family Medicine
DX: Z12.5 Encounter for screening for malignant neoplasm of prostate (principal); E78.2 Mixed hyperlipidemia; I10 Essential (primary) hypertension; Z51.81 Encounter for therapeutic drug level monitoring; Z79.899 Other long term (current) drug therapy; E11.9 Type 2 diabetes mellitus without complications
CPT/HCPCS: 36415; 80053; 80061; 82043; 83036; 84153; 84439; 84443; 85025; G0103

== ENCOUNTER 2021-11-23 09:54 | Outpatient (CLI) | payer OTHER, SELFPAY ==
[2021-11-23 10:34] LABS: Alanine Aminotransferase 29 U/L (6-50); Albumin Level 4.7 g/dL (3.5-5.1); Alkaline Phosphatase 51 U/L (38-126); Anion Gap 8 mmol/L (8-16); Aspartate Amino Transferase 30 U/L (17-59); Bilirubin,Total 0.3 mg/dL (0.2-1.3); Blood Urea Nitrogen 13 mg/dL (9-20); Carbon Dioxide 30 mmol/L (22-30); Chloride 101 mmol/L (98-107); Estimated Glomerular Filt Rate > 60; Glucose 101 mg/dL (65-110); Potassium 4.1 mmol/L (3.4-5.0); Sodium 139 mmol/L (137-145)
== END 2021-11-23 09:55 | disposition home or self-care (01) ==
LOC: ANHLAB 09:57
PROVIDERS: PCP Family Medicine; Visit Provider Physician Assistant
DX: E74.39 Other disorders of intestinal carbohydrate absorption (principal)
CPT/HCPCS: 36415; 80053; 83036

== ENCOUNTER 2021-11-27 12:11 | Outpatient (CLI) | payer OTHER, SELFPAY ==
[2021-11-30 02:24] LABS: H pylori Ag Stool Not Detected (Not Detected)
== END 2021-11-27 12:12 | disposition home or self-care (01) ==
PROVIDERS: PCP Family Medicine; Visit Provider Physician Assistant
DX: K29.70 Gastritis, unspecified, without bleeding (principal)
CPT/HCPCS: 87338

== ENCOUNTER 2022-01-02 00:51 | Day surgery (SDC) | payer OTHER, SELFPAY ==
[2021-12-25 13:38] VITALS: BMI 29.6
[2022-01-02 12:00] VITALS: BP 172/72; PULSE 60; RESP 18; TEMP 36.3; O2SAT 100
[2022-01-02 12:00] LABS: Glucose Point of Care 113 mg/dl (65-105)
--- NOTE | 2022-01-02 12:09 | WPDHPUPDATE1 ---
History and Physical Update Update Date/Time: 01/02/22 12:09 History and Physical has been reviewed, including an updated exam of the patient. There are NO changes in the patient's condition. Risks, benefits, and alternatives have been discussed and questions answered. Patient agrees to proceed with procedure.
[2022-01-02] MEDS: LACTATED RINGERS 1,000 ML 150 ML IV CONT (12:11)
--- NOTE | 2022-01-02 12:11 | WPDANESEPPF ---
Anes - Initial Pre Proc Eval Procedure: Operation Date: 01/02/22 13:00 Proposed Procedures p Esophagogastroduodenoscopy - Gio Beavers MD Date/Time: 01/02/22 12:11 Surgeon: Gio Beavers MD Pre Op Diagnosis: epigastric pain Patient Data Age: 66 Gender: M Height: 1.75 m Weight: 90.1 kg Last Vital Signs Temp 97.4 F L 01/02/22 12:00 Pulse 60 01/02/22 12:00 Resp 18 01/02/22 12:00 BP 172/72 H 01/02/22 12:00 Pulse Ox 100 01/02/22 12:00 O2 Del Method Room Air 01/02/22 12:00 Allergies Allergy/AdvReac Type Severity Reaction Status Date / Time No Known Allergies Allergy Verified 01/02/22 11:58 Home Medications Medication Instructions Recorded Confirmed Type glucosamine sulf dipot 2 cap PO DAILY 03/04/20 01/02/22 History chlr,msm,chond 550 mg-C 30 mg-bernardino 1 mg capsule (Glucosamine Chondroitin) multivitamin 1 tablet PO DAILY 03/04/20 01/02/22 History vitamin B complex 1 cap PO DAILY 03/04/20 01/02/22 History omega-3 fatty acids 2 cap PO DAILY 11/22/20 01/02/22 History telmisartan 80 See Rx Instructions .Route 05/15/21 01/02/22 Rx mg-hydrochlorothiazide 12.5 mg .COMPLEX #90 tabs tablet tizanidine 4 mg capsule See Rx Instructions .Route 09/18/21 01/02/22 Rx .COMPLEX #60 caps metformin 500 mg tablet,extended 1,000 mg PO DAILY #60 tabs 09/26/21 01/02/22 Rx release 24 hr tramadol 50 mg tablet 50 mg PO Q4H PRN pain #240 tabs 12/15/21 01/02/22 Rx Laboratory Tests 01/02/22 11:55 POC Capillary Glucose 113 mg/dl H mg/dl (65-105) Patient hx anesthesia problems: none Family hx anesthesia problems: none Results Review: All pre-operative results and documents have been reviewed as part of the pre-operative evaluation. FORMERLY [facility] Past Medical History Medical History Arthritis BMI 28.0-28.9,adult Colon polyps Degeneration of intervertebral disc, site unspecified DVT (deep venous thrombosis) Essential (primary) hypertension Gastro-esophageal reflux disease without esophagitis Hypertension Lumbago with sciatica Mixed hyperlipidemia Osteoarthritis of left knee Other irritable bowel syndrome Pulmonary embolism Rectal polyp TMJ (dislocation of temporomandibular joint) Toe fracture Surgical History Surgical History History of hand surgery Right, Knot removal Dr. 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[employer] Gender identity (if verbalized by the patient): Male Spiritual care concerns: No Agree to blood products: No Anes - Eval Final PreProcedure Day of Procedure 01/02/22 12:11 Patient weight: normal Heart: regular rate and rhythm Lungs: clear to auscultation Airway: Mallampati scale class II Neurological: alert and oriented Last oral intake: >/= 8 hours ASA classification: III Emergent: no Anesthetic plan: proceed Anesthesia type and monitoring: general GIVS and standard monitoring Results Review: All pre-operative results and documents have been reviewed as part of the pre-operative evaluation. Informed Consent: The patient's anesthetic plan and its attendant risks and benefits were d
[2022-01-02] MEDS: BENZOCAINE (*SP) 60 ML SPRAY CAN (HURRICAINE) 1 SPRAY MUCOUS MEM (12:24)
[2022-01-02 12:31] VITALS: BP 135/71; PULSE 67; RESP 15; O2SAT 100
[2022-01-02 12:41] VITALS: BP 140/78; PULSE 66; RESP 18; O2SAT 100
[2022-01-02 12:51] VITALS: BP 172/75; PULSE 57; RESP 18; O2SAT 100
== END 2022-01-02 12:57 | disposition home or self-care (01) ==
PROVIDERS: Visit Provider Internal Medicine Gastroenterology
PROC: 0DJ08ZZ Inspection of Upper Intestinal Tract, Via Natural or Artificial Opening Endoscopic (ICD-10-PCS; CPT 43235; principal; 2022-01-02 13:00)
DX: R10.13 Epigastric pain (principal); K21.9 Gastro-esophageal reflux disease without esophagitis; I10 Essential (primary) hypertension; E78.2 Mixed hyperlipidemia; K58.8 Other irritable bowel syndrome; Z86.718 Personal history of other venous thrombosis and embolism; Z86.711 Personal history of pulmonary embolism; Z79.84 Long term (current) use of oral hypoglycemic drugs
CPT/HCPCS: 43239; 82948; 87081; J2704; J7120

== ENCOUNTER 2022-03-07 08:02 | Outpatient (CLI) | payer OTHER, SELFPAY ==
--- NOTE | ~2022-03-07 | XR_ITS ---
EXAMINATION: XR fl inj knee LT for MR/CT DATE: 03/07/2022 08:58 INDICATION: Unilateral primary osteoarthritis, left knee. TECHNIQUE: A time-out was performed to verify the patient's name, date of , and procedure to b e performed. The procedure including the risks, benefits, and alternatives was discussed with the pat ient. Risks discussed included bleeding and infection. The patient understood the risks and agreed to proceed. The skin overlying the left knee joint was prepped and draped in usual sterile fashion. An esthetic was administered with 1% lidocaine subcutaneously. A 22 G needle was advanced under fluoros copic guidance into the joint. Subsequently, injectate consisting of 34 mL of 1:4 1% lidocaine and 1 :2 Omnipaque 240 was instilled. The needle was removed and the entry site was cleaned and dressed. There were no immediate complications. Fluoroscopy exposure time was 0.1 minutes. The total number of images was 4. FINDINGS: Real-time fluoroscopy demonstrates the needle and contrast in the left knee joint. IMPRESSION: 1. Successful left knee joint injection of contrast for subsequent CT arthrography. Reviewed, dictated and finalized at location A. YSIS NURSE IMPRESSION: 1. Successful left knee joint injection of contrast for subsequent CT arthrogra phy.
--- NOTE | ~2022-03-07 | CT_ITS ---
EXAMINATION: CT knee LT w con DATE: 03/07/2022 09:11 INDICATION: Left knee pain TECHNIQUE: High resolution computed tomography (CT) of the left knee was performed with intra-articul ar contrast but without intravenous contrast. Details of the contrast injection been dictated nancy lan. Additional sagittal and coronal reconstructions were performed. Automated exposure control and i terative reconstruction technique were employed. The dose-length product was 448.66 mGy-cm. COMPARISON: Left knee radiographs dated 08/31/2020 FINDINGS: Bone alignment is normal. No fracture. Prominent enthesophytes at the anterior tibial tuberosity and along the anterior margin of the patella. Soft tissues injected contrast extends into a small De La Cruz's cyst at the posterior medial aspect of the knee. There is medial extrusion of the medial meniscal body. There is a longitudinal horizontal tear which extends inferior articular surface of the body and posterior horn of the medial meniscus. Small longi tudinal shallow vertical tear along the inferior articular surface at the peripheral third of the pos terior horn of the lateral meniscus. Tricompartmental osteoarthritis with extensive deep partial-thickness cartilage loss in places approa alexandru full/near full-thickness cartilage loss along the anteromedial margin of the medial tibial plat eau and along the weightbearing medial femoral condyle with regions of subarticular cystic changes at the medial margin of the posterior weightbearing medial femoral condyle. Partial-thickness chondral fissuring involving greater than 50% the cartilage thickness at the central aspect of the lateral tib ial plateau. Partial-thickness cartilage loss involving approximately 50% the cartilage thickness at the anterior weightbearing lateral femoral condyle. Deep chondral ulceration along the trochlear groo ve with central subchondral osteophyte region to the level of the surrounding cartilage surface at th e central aspect of the trochlear groove. Mild chondral surface regularity with mild partial-thicknes s cartilage loss at the lateral trochlea and lateral patellar facet and with moderate to severe parti al thickness cartilage loss at the medial trochlea and medial patellar facet. Additional small centra l subchondral osteophyte at the inferomedial aspect of the medial patellar facet. IMPRESSION: 1. Longitudinal horizontal tear of the posterior horn and medial extruded body of the medial meniscus . 2. Small shallow longitudinal vertical oriented tear at the peripheral third of the posterior horn of the lateral meniscus. 3. Tricompartmental osteoarthritis, severe in the medial compartment and mild in the lateral and smith llofemoral compartments. 4. Small De La Cruz's cyst. Reviewed, dictated and finalized at location A. RVISOR ACCOUNTS RECEIVABLE IMPRESSION: 1. Longitudinal horizontal tear of the posterior horn and medial extruded body of the medial meniscus. 2. Small shallow longitudinal vertical oriented tear at the peripheral third of the posterior horn of the lateral meniscus. 3. Tricompartmental osteoarthritis, severe in the medial compartment and mild i n the lateral and patellofemoral compartments. 4. Small De La Cruz's cyst.
== END 2022-03-07 08:03 | disposition home or self-care (01) ==
PROVIDERS: PCP Family Medicine; Visit Provider Orthopaedic Surgery
DX: M17.12 Unilateral primary osteoarthritis, left knee (principal)
CPT/HCPCS: 20610; 73701; 77002; Q9966

== ENCOUNTER 2022-04-11 12:26 | Outpatient (CLI) | payer OTHER, SELFPAY ==
--- NOTE | ~2022-04-11 | XR_ITS ---
Lumbosacral Spine: AP, oblique, and lateral views Clinical History: Pain Findings: The normal lordotic curve is maintained. The vertebral bodies and posterior elements are i ntact. There is moderate degenerative disc narrowing at L5-S1. The sacroiliac joints are normally ou tlined. Impression: Degenerative disc change at L5-S1. Reviewed, dictated and finalized at [facility]. PUMPER Impression: Degenerative disc change at L5-S1.
== END 2022-04-11 12:27 | disposition home or self-care (01) ==
PROVIDERS: PCP Family Medicine; Visit Provider Physician Assistant
DX: M54.50 Low back pain, unspecified (principal); M51.37 Other intervertebral disc degeneration, lumbosacral region
CPT/HCPCS: 72110

== ENCOUNTER 2022-05-07 07:55 | Outpatient (CLI) | payer OTHER, SELFPAY ==
--- NOTE | 2022-05-07 09:04 | ECG_ITS ---
Measurements Intervals [place] Rate: 62 P: 62 RI: 211 QRS: 27 QRSD: 108 T: 29 QT: 394 QTc: 403 Interpretive Statements SINUS RHYTHM WITH FIRST DEGREE AV BLOCK DELAYED PRECORDIAL R/S TRANSITION BORDERLINE ECG COMPARED TO ECG 03/26/2020 20:06:53 SINUS RHYTHM NOW PRESENT FIRST DEGREE AV BLOCK NOW PRESENT Electronically Signed On 05-07-2022 10:53:26 CHILDRENS CLUB ATTENDANT by Jones Hagen D.O.
[2022-05-07 10:50] LABS: Basophils Percent Auto 0.6 % (0.2-1.2); Eosinophils Absolute Auto 0.2 K/mm3 (0-0.3); Eosinophils Percent Auto 2.4 % (0-4.4); Hematocrit 42.4 % (42.0-52.0); Hemoglobin 13.3 g/dL (14.0-18.0); Immature Granulocyte Absolute 0.03 K/mm3 (0.00-0.031); Immature Granulocyte Percent A 0.4 % (0-0.5); Lymphocytes Absolute Auto 3.84 K/mm3 (0.9-3.2); Lymphocytes Percent Auto 54.2 % (18.3-44.2); Mean Corpuscular HGB Conc 31.4 g/dl (32-36); Mean Corpuscular Hemoglobin 28.7 pg (26-34); Mean Corpuscular Volume 91.6 fl (80-100); Mean Platelet Volume 9.9 fl (7.4-10.4); Monocytes Absolute Auto 0.7 K/mm3 (0.1-0.6); Monocytes Percent Auto 9.2 % (2.6-8.5); Neutrophils Absolute Auto 2.4 K/mm3 (1.3-6.7); Neutrophils Percent Auto 33.2 % (45.5-73.1); Platelet Count Result 238 k/mm3 (150-375); Red Blood Count 4.63 M/mm3 (4.6-6.20); Red Cell Distribution Width 15.1 % (11.5-14.5); White Blood Count 7.1 K/mm3 (4.5-10.0)
[2022-05-07 10:53] LABS: Albumin Level 4.5 g/dL (3.5-5.1)
[2022-05-07 10:55] LABS: Anion Gap 6 mmol/L (8-16); Blood Urea Nitrogen 16 mg/dL (9-20); Calcium 8.7 mg/dL (8.4-10.2); Carbon Dioxide 32 mmol/L (22-30); Chloride 102 mmol/L (98-107); Estimated Glomerular Filt Rate > 60; Glucose 105 mg/dL (65-110); Potassium 4.6 mmol/L (3.4-5.0); Sodium 140 mmol/L (137-145)
[2022-05-07 10:59] LABS: Urine Cotinine NEGATIVE
[2022-05-07 11:06] LABS: Hemoglobin A1C 6.4 % (<5.7)
== END 2022-05-07 07:56 | disposition home or self-care (01) ==
PROVIDERS: Anesthesiology; PCP Family Medicine; Visit Provider Orthopaedic Surgery
DX: Z01.812 Encounter for preprocedural laboratory examination (principal); M17.12 Unilateral primary osteoarthritis, left knee; I10 Essential (primary) hypertension; E11.9 Type 2 diabetes mellitus without complications; E78.2 Mixed hyperlipidemia
CPT/HCPCS: 36415; 80048; 80307; 82040; 83036; 85025; 87081; 93005

== ENCOUNTER 2022-05-08 14:54 | Outpatient (CLI) | payer OTHER, SELFPAY ==
--- NOTE | ~2022-05-08 | XR_ITS ---
EXAM: XR knee LT 3V DATE: 05/08/2022 15:20 HISTORY: M17.12 - Unilateral primary osteoarthritis, left knee . COMPARISON: 08/31/2020. FINDINGS: Normal mineralization. No fracture or dislocation. No lytic or blastic lesion. Severe medi al joint space narrowing. Tricompartmental osteophytosis, moderate in the medial compartment. Quadric eps enthesopathy. No erosion or periosteal change. Soft tissues within normal limits. IMPRESSION: Tricompartmental osteoarthritis, severe in the medial compartment. Reviewed, dictated and finalized at location K. CERTIFIED TECHNICIAN
== END 2022-05-08 14:55 | disposition home or self-care (01) ==
PROVIDERS: PCP Family Medicine; Visit Provider Orthopaedic Surgery
DX: M17.12 Unilateral primary osteoarthritis, left knee (principal)
CPT/HCPCS: 73562

== ENCOUNTER 2022-05-21 00:19 | Day surgery (SDC) | payer OTHER, SELFPAY ==
[2022-05-07 08:05] VITALS: BMI 30.2
--- NOTE | 2022-05-07 08:35 | PC.NURSE ---
Report to the Outpatient Waiting Room, entrance under the green pavilion located off [facility], at time 0830____ on date __05/21/22 . Planned Procedure Time: _1030 . Time changes happen often and if your time is changed the preop area will call you the afternoon before. - You and your visitor will be asked to self-screen and do not enter if you have any COVID symptoms. - Only one visitor is requested with a max of two and NO children visitors are allowed at this time. - The patient visitor may be requested to leave or wait in car when not with patient due to distancing restrictions. - A mask is optional within the hospital. Patients may have clear liquids (water, carbonated beverages, clear teas, apple juice) until 3 hours prior to surgery with a maximum of 20 ounces. - No food from midnight until time of surgery - Infants may have breast milk until 4 hours before surgery, formula 6 hours prior to surgery. - Children will be allowed to drink immediately following surgery. If applicable, please bring a bottle or sippy cup to assist with drinking. Juice, water, soda, and popsicles are readily available. For infants on formula, please bring formula the day of surgery. Pacifiers are allowed. Take the following medications with a SIP of water the morning of surgery: ____NONE Medications to discontinue per physician ALL VITAMINS AND SUPPLEMENTS 3 DAYS PRE OP LAST DOSE 05/17/22 Please no make-up, nail chinese, hairspray, perfume, deodorant, or body powder the day of surgery. No jewelry (including any body piercings) or valuables the day of surgery, leave them at home. Please take a shower or bath the night before, or the morning of, surgery with an antibacterial soap. Wear comfortable, loose fitting clothing. Children are encouraged to wear pajamas. - Jewelry must be removed prior to entering the operating room. Rings and piercings that are not removed may be cut off. - The hospital will not accept responsibility for valuables. - Please leave all valuables, including medications, at home the day of surgery. If you are going home after surgery, a licensed solid waste truck driver must drive you home. - NO public transportation without another adult if you receive anesthesia. - We recommend that an adult stay with you for 24 hours following discharge. - We also recommend that you do not drive, make important decision, drink alcoholic beverages, or take any drugs that were not prescribed by your health care provider for at least 24 hours after your discharge time. Follow any additional instructions given to you from your surgeon. If you or anyone in your household have experienced Covid symptoms in the past week, please notify your surgeon or the nurse liaison at the phone number below for possible testing. VERBAL AND WRITTEN instructions given to ___PATIENT and asked if any additional questions and then verbalized understanding. Patient advised to call surgeon office or pre surgery nurse liaison [phone] if any additional questions.
[2022-05-07 08:51] VITALS: BP 163/90; PULSE 66; RESP 18; TEMP 36.8; O2SAT 100
[2022-05-21] VITALS (14 sets, daily range): BP systolic 155–180; BP diastolic 74–95; PULSE 67–90; RESP 10–21; TEMP 36.3–37.4; O2SAT 92–100
--- NOTE | ~2022-05-21 | XR_ITS ---
EXAMINATION: XR knee LT 2V DATE: 05/21/2022 12:49 INDICATION: Left unicompartmental knee arthroplasty. Postop. TECHNIQUE: 2 views of left knee were obtained. COMPARISON: Left knee radiographs 05/08/2022 FINDINGS: There is a medial compartment arthroplasty in near-anatomic alignment. No fracture. There i s mild osteoarthritis of lateral and patellofemoral compartments characterized by osteophytes without joint space narrowing. No knee joint effusion. There is gas in the soft tissues, consistent with rec ent surgery. IMPRESSION: 1. Medial compartment arthroplasty in near-anatomic alignment. Reviewed, dictated and finalized at location A. TRUSS BUILDER
--- NOTE | 2022-05-21 07:23 | WPDHPUPDATE1 ---
History and Physical Update Update Date/Time: 05/21/22 07:23 History and Physical has been reviewed, including an updated exam of the patient. There are NO changes in the patient's condition. Risks, benefits, and alternatives have been discussed and questions answered. Patient agrees to proceed with procedure.
[2022-05-21] MEDS: LACTATED RINGERS 1,000 ML 30 ML IV CONT ×2 (08:25→12:37)
[2022-05-21] MEDS: ACETAMINOPHEN 500 MG TABLET 1000 MG PO (08:28)
[2022-05-21 08:31] LABS: Glucose Point of Care 117 mg/dl (65-105)
--- NOTE | 2022-05-21 08:36 | WPDANESEPPF ---
Anes - Initial Pre Proc Eval Procedure: Operation Date: 05/21/22 10:30 Proposed Procedures p Left Unicompartmental Knee Arthroplasty - Eyal Gregory MD Date/Time: 05/21/22 08:36 Surgeon: Eyal Gregory MD Pre Op Diagnosis: oa left knee Patient Data Age: 67 Gender: M Height: 1.75 m Weight: 92.9 kg Last Vital Signs Temp 36.8 C 05/07/22 08:51 Pulse 66 05/07/22 08:51 Resp 18 05/07/22 08:51 BP 163/90 H 05/07/22 08:51 Pulse Ox 100 05/07/22 08:51 O2 Del Method Room Air 05/07/22 08:51 Allergies Allergy/AdvReac Type Severity Reaction Status Date / Time ibuprofen AdvReac Gastrointestinal Verified 05/21/22 08:36 Upset Home Medications Medication Instructions Recorded Confirmed Type glucosamine sulf dipot 2 cap PO DAILY 03/04/20 05/21/22 History chlr,msm,chond 550 mg-C 30 mg-bernardino 1 mg capsule (Glucosamine Chondroitin) multivitamin 1 tablet PO DAILY 03/04/20 05/21/22 History vitamin B complex 1 cap PO DAILY 03/04/20 05/21/22 History omega-3 fatty acids 2 cap PO DAILY 11/22/20 05/21/22 History metformin 500 mg tablet,extended 1,000 mg PO DAILY #60 tabs 09/26/21 05/21/22 Rx release 24 hr telmisartan 80 See Rx Instructions .Route 03/19/22 05/21/22 Rx mg-hydrochlorothiazide 12.5 mg .COMPLEX #90 tabs tablet tramadol 50 mg tablet 100 mg PO Q6H PRN pain, severe 04/18/22 05/21/22 Rx #240 tabs polysaccharide iron complex 150 mg 150 mg PO DAILY #30 caps 05/07/22 05/21/22 Rx iron capsule rivaroxaban 10 mg tablet (Xarelto) 10 mg PO DAILY PE prophylaxis s/p 05/10/22 05/21/22 Rx surgery 14 days #14 tabs Laboratory Tests 05/21/22 08:25 POC Capillary Glucose 117 mg/dl H mg/dl (65-105) Patient hx anesthesia problems: none Family hx anesthesia problems: none Results Review: All pre-operative results and documents have been reviewed as part of the pre-operative evaluation. FORMERLY [facility] Past Medical History Medical History Arthritis BMI 28.0-28.9,adult Colon polyps Degeneration of intervertebral disc, site unspecified DVT (deep venous thrombosis) Essential (primary) hypertension Gastro-esophageal reflux disease without esophagitis Hypertension Lumbago with sciatica Mixed hyperlipidemia Osteoarthritis of left knee Other irritable bowel syndrome Pulmonary embolism Rectal polyp TMJ (dislocation of temporomandibular joint) Toe fracture Surgical History Surgical History History of hand surgery Right, Knot removal Dr. Gregory History of spinal surgery S/P right unicompartmental knee replacement 2015 Family History Family History Mother Diabetes mellitus Family history of lung cancer Hypertension Dementia Septicemia Sibling Family history of malignant neoplasm of breast in first degree relative, Onset Age: 45 Breast cancer Social History Social History Smoking status: Never smoker Additional smoking assessment comments: DENIES ANY FORM OF TOBACCO USE Alcohol intake: current Drinks per week: 5 Alcohol use details: BEER Substance use: never Substance use type: does not use Lack of Transportation: No Lack of Food: Never True Current Housing: I Have Housing Concerned About Future Housing: No Difficulty Paying Gas/Electric Bills: No Difficulty Paying for Meds: No Currently Unemployed: No Education: High School Diploma/GED Difficulty w/ Childcare or Family Care: No Living arrangements: with family Additional living arrangements comments: Occupation/Education: occupation 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
[2022-05-21] MEDS: TRANEXAMIC ACID 1,000MG/ISO100 1,000 MG/100 ML BAG 200 MG IVPB (09:25)
--- NOTE | 2022-05-21 09:26 | WPDHPUPDATE1 ---
History and Physical Update Update Date/Time: 05/21/22 09:26 History and Physical has been reviewed, including an updated exam of the patient. There are NO changes in the patient's condition. Risks, benefits, and alternatives have been discussed and questions answered. Patient agrees to proceed with procedure.
--- NOTE | 2022-05-21 10:08 | WPDANESPNB ---
Anes - Peripheral Nerve Block Date/Time: 05/21/22 10:08 I have discussed with the patient/family/POA the placement of a peripheral nerve block for post-operative pain management, including associated risks, benefits, complications, and side effects. Alternative methods of post-operative analgesia were detailed. Questions were solicited and answers provided to the satisfaction of the patient/family/POA. Time-Out: A pre-procedural Time-Out was completed immediately before starting the procedure and confirmed: Patient Identification, Site, Procedure, Patient Position and the Availability of Requisite Equipment. Clinical Indications: Acute post-operative pain management requested by the operative surgeon. Nerve Block Insertion Note Anes-nerve block: adductor canal left Patient position: supine Skin prep: chlorhexidine Needle: 22 gauge, stimulating, insulated echogenic needle. Needle length: 80 mm Technique: ultrasound Technique comment: mid 2mg [id number] Injectate: bupivacaine 0.5% with epi 5 mcg/ml (30ml no epi) Observations: tolerated well Complications: none Procedure start time:: 954 Procedure end time:: 1001
[2022-05-21] MEDS: ceFAZolin 2 GM/D5W 50 ML 2 GM/50 ML BAG IVPB ×2 (10:14→18:12)
[2022-05-21] MEDS: ceFAZolin SODIUM 1 GM VIAL IV PUSH (11:50)
[2022-05-21] MEDS: fentaNYL CITRATE INJ (*CRX) 100 MCG/2 ML VIAL 25 MCG IV PUSH ×8 (12:40→13:06)
[2022-05-21 12:45] LABS: Glucose Point of Care 110 mg/dl (65-105)
--- NOTE | 2022-05-21 12:45 | W.PM.PROC2 ---
Procedure Note - Detailed Date of Procedure 05/21/22 Pre-op Diagnosis oa left knee Post-op Diagnosis Same Procedure Performed left knee unicompartmental replacement - medial Surgeon Eyal Gregory MD Precision Layout Worker Elissa Escalante Anesthesia General and Regional Description of Procedure The patient was identified and the proper site identified. In the preop holding area the anesthesia team performed a left lower extremity block. He was then taken to the operating room and transferred to the OR table placing him supine taking care to pad his torso and extremities. After general anesthetic induction and intubation. a nonsterile tourniquet was placed high on the left thigh. The extremity was positioned, prepped, and draped in the usual sterile fashion. The extremity was exsanguinated and the tourniquet was inflated to 300 mmHg remaining up for approximately 66 minutes. An anterior midline incision was made and sharp dissection carried down through the subcutaneous tissue to the extensor mechanism. A modified medial parapatellar arthrotomy was performed. The articular and meniscal cartilage of the lateral compartment was inspected and noted to be in excellent shape. Anterior and posterior cruciate ligaments were in continuity. There were extensive degenerative changes medial compartment and milder patellofemoral changes. The marginal osteophytes were removed from the notch and the medial aspect of the medial femoral condyle, and the remaining meniscal tissue was removed. The femur was sized to a large. With the appropriate spoon and tibial guide, a tibial resection was made. This was sized to a B. Using the mill, the flexion and extension gaps were balanced. A trial reduction was undertaken. The range of motion of the knee was noted to be from full extension to 0-120? of flexion with excellent stability through range of motion. The polyethylene insert tracked nicely. The trial components were removed. The real large femur and size B tray for the left knee were cemented into place. The knee was held in about 30? of flexion while the cement cured. The tourniquet was released and excess cement was removed from the joint. Hemostasis was carried out. The knee was flushed with a copious amount of irrigation. After trialing, the appropriate real size 4 insert for the femoral component was inserted and the stability again assessed. The knee was noted to be stable as it was taken through range of motion. The periarticular tissues were injected with 60 mL of arthroplasty solution after a 3 minutes Betadine bath wound. Surgicel powder was applied deep to and superficial to the extensor mechanism. The extensor mechanism was repaired with 0 looped PDS suture, the subcu with 3-0 Stratafix and tissue adhesive for the skin. A sterile dressing was applied. The patient tolerated the procedure well, was awakened, extubated, and taken to recovery room in stable condition. Estimated Blood Loss -150.0 Tourniquet Time 66 Drains No Packing No Pathology None sent Complications No immediate complications Condition Stable Disposition PACU [facility] Billing Surgery - Charge Forward: Surgery Billing ([id number])
[2022-05-21] MEDS: HYDROmorphone HCL INJ (*CRX) 1 MG/ML SYR IV PUSH ×3 (13:15→14:00)
--- NOTE | 2022-05-21 14:28 | ADMGEN ---
This patient, Desmond Delcid, was admitted to Medical Room 240-. Patient/family oriented to hospital policies and general routines including ID bracelet, bed and alarms, visiting hours, pain management, procedures, bathroom and other care routines, personal items, smoking policy, room service/diet, and visiting hours. Information on how to activate the Rapid Response Team has been discussed. Patient/Family are encouraged to report perceived risks to care and to ask questions if they do not understand what they are told or what they should do.
[2022-05-21] MEDS: oxyCODONE/ACETAMINOPHEN (*CRX) 5-325 MG TABLET 1 TABLET PO ×3 (14:29→20:33)
[2022-05-21] MEDS: SENNA/DOCUSATE SODIUM TABLET 2 TAB PO (16:44)
[2022-05-21 16:53] LABS: Glucose Point of Care 164 mg/dl (65-105)
[2022-05-21] MEDS: KETOROLAC 15 MG/ML VIAL (*BKC) IV PUSH (17:56)
[2022-05-21] MEDS: FAMOTIDINE 20 MG TABLET PO (20:33)
[2022-05-21] MEDS: oxyCODONE HCL (*CRX) 2.5 MG TAB IR PO (20:34)
[2022-05-21] MEDS: oxyCODONE HCL (*CRX) 5 MG TAB IR PO (20:35)
[2022-05-22] MEDS: KETOROLAC 15 MG/ML VIAL (*BKC) IV PUSH ×3 (00:36→11:38)
[2022-05-22] MEDS: oxyCODONE HCL (*CRX) 2.5 MG TAB IR PO ×2 (00:37→09:21)
[2022-05-22] MEDS: oxyCODONE/ACETAMINOPHEN (*CRX) 5-325 MG TABLET 1 TABLET PO ×3 (00:37→09:04)
[2022-05-22] MEDS: oxyCODONE HCL (*CRX) 5 MG TAB IR PO ×2 (00:37→09:21)
[2022-05-22 01:14] VITALS: BP 173/78; PULSE 73; RESP 20; TEMP 36.8; O2SAT 98
[2022-05-22] MEDS: ceFAZolin 2 GM/D5W 50 ML 2 GM/50 ML BAG IVPB ×2 (03:32→11:00)
[2022-05-22 06:00] VITALS: BP 160/70; PULSE 64; RESP 20; TEMP 36.7; O2SAT 99
--- NOTE | 2022-05-22 07:49 | WPDANESPN ---
Anes - Prog Note Post-Op Date/Time: 05/22/22 07:49 Cardiovascular status: normal Respiratory status: normal Airway patency: baseline Mental status: baseline Post-Op hydration status: normal Vital Signs: Last Vital Signs Temp 36.7 C 05/22/22 06:00 Pulse 64 05/22/22 06:00 Resp 20 05/22/22 06:00 BP 160/70 H 05/22/22 06:00 Pulse Ox 99 05/22/22 06:00 O2 Del Method Room Air 05/21/22 20:00 O2 Flow Rate 8 05/21/22 12:45 Pain Score (VAS): 2/10 I/O: Intake & Output 05/21/22 05/21/22 05/22/22 15:59 23:59 07:59 Intake Total 650 670 750 Output Total 600 1300 Balance 650 70 -550 05/21/22 05/21/22 05/21/22 08:25 12:42 16:44 POC Capillary Glucose 117 H 110 H 164 H Post-procedural complaints: none Patient Feedback: Patient satisfied with anesthetic care.
--- NOTE | 2022-05-22 07:57 | PM.DS ---
DS: Admitting Diagnosis Discharge Date 05/22/2022 Admitting Diagnosis Left knee osteoarthritis DS: Discharge Diagnosis Discharge Diagnosis (1) Status post left unicompartmental knee replacement: Code(s): Z96.652 - Presence of left artificial knee joint Status: Acute Plan 67-year-old male postop day 1 after left unicompartmental knee replacement. Overall uneventful overnight stay. He has been able to tolerate oral intake and is voiding without difficulty. He will see therapy today prior to discharge. Postoperative wound care and medications were discussed in detail. He has planned follow-up in 2 weeks for wound check. He was informed to call our office if any further questions or concerns prior to that scheduled follow-up. DS: Summary Hospital Course Reason for hospitalization: Observation after outpatient procedure Hospital Course: 59-year-old male admitted for observation after left unicompartmental knee replacement. Uneventful overnight stay. Pain is well controlled. Plan to see therapy today prior to discharge home. Status at Discharge Functional status at discharge: uses cane/walker Overall status at discharge: patient is progressing back to baseline Time Spent with Patient Time attestation: Total time spent providing and/or coordinating discharge services: Exam Const: General: comfortable and no acute distress Eyes: General: appearance normal, both eyes and all related structures Resp: Effort & Inspection: normal respiratory effort GI: Inspection: non-distended Skin: General skin exam: normal color and no erythema Neuro: Sensory Exam: normal sensation Extrem: Other: Exam of the left knee shows a clean and dry surgical dressing. Swelling is consistent with the recent unicompartmental knee replacement. Calves negative. Neurovascular status left lower extremity is intact. Psych: Mental Status: mental status grossly normal Radiology Reports: Comments: EXAMINATION: XR knee LT 2V DATE: 05/21/2022 12:49 INDICATION: Left unicompartmental knee arthroplasty. Postop. TECHNIQUE: 2 views of left knee were obtained. COMPARISON: Left knee radiographs 05/08/2022 FINDINGS: There is a medial compartment arthroplasty in near-anatomic alignment. No fracture. There is mild osteoarthritis of lateral and patellofemoral compartments characterized by osteophytes without joint space narrowing. No knee joint effusion. There is gas in the soft tissues, consistent with recent surgery. IMPRESSION: 1. Medial compartment arthroplasty in near-anatomic alignment. DS: Data Data Completed and Pending Labs on day of discharge: Labs from last 24 hours 05/21/22 05/21/22 05/21/22 16:44 12:42 08:25 POC Capillary Glucose 164 H 110 H 117 H Discharge Plan Discharge Patient Disposition: Home, Self-Care Discharge Instructions: 3 times daily for 20 minutes each time, reclining in bed with ice packs over the incision and a pillow underneath the calf of the affected leg, not under the knee. Your wound is glued so it is okay to remove the dressing, get into the shower and get the wound wet in two days. Be sure to read through all the information that came from a my office and the hospital. Most of the answers you will need can be found that material. Call the office with any questions that you cannot find answers to, or concerns you may have. After the Xarelto is completed, start taking one coated 325 mg aspirin daily and do this for four more weeks. Please call [facility] at as soon as possible to arrange for/verify your follow-up appointment to be seen in 2 weeks. Also, call the office with any orthopedic/surgical related questions prior to follow-up. Be sure to get up and move around several times daily but do not overdo it. Take the arthritis formula Tylenol 650 mg tablet on an 8 hour schedule. A good 8 hour schedule is: 6:00 a.m., 2:00 p.m., 10:00 p.m. you may take the pre
[2022-05-22] MEDS: SENNA/DOCUSATE SODIUM TABLET 2 TAB PO (09:04)
[2022-05-22] MEDS: POLYSACCHARIDE IRON COMPLEX 150 MG CAPSULE PO (09:05)
[2022-05-22] MEDS: TELMISARTAN 40 MG TABLET 80 MG PO (09:05)
[2022-05-22] MEDS: VITAMIN B COMPLEX CAPSULE 1 CAP PO (09:05)
[2022-05-22] MEDS: RIVAROXABAN 10 MG TABLET PO (09:05)
[2022-05-22] MEDS: polyethylene glycoL 3350 17 GM POWD.PACK PO (09:06)
[2022-05-22] MEDS: hydroCHLOROthiazide 12.5 MG CAPSULE PO (09:06)
[2022-05-22] MEDS: MULTIVITAMINS THERAPEUTIC TAB (*BKC) 1 TABLET PO (09:06)
[2022-05-22] MEDS: FAMOTIDINE 20 MG TABLET PO (09:06)
[2022-05-22 10:30] VITALS: BP 158/62; PULSE 73; RESP 20; TEMP 36.8; O2SAT 96
== END 2022-05-22 12:00 | disposition home or self-care (01) ==
LOC: ANHSURGERY 12:36 → ANH2MED 14:14
PROVIDERS: PCP Family Medicine; Visit Provider Orthopaedic Surgery
PROC: (CPT 27446; principal; 2022-05-21 10:30)
DX: M17.12 Unilateral primary osteoarthritis, left knee (principal); G89.18 Other acute postprocedural pain; I10 Essential (primary) hypertension; K21.9 Gastro-esophageal reflux disease without esophagitis; E78.2 Mixed hyperlipidemia; Z86.718 Personal history of other venous thrombosis and embolism; Z86.711 Personal history of pulmonary embolism; Z79.84 Long term (current) use of oral hypoglycemic drugs; Z79.01 Long term (current) use of anticoagulants
CPT/HCPCS: 27446; 64447; 73560; 82948; 97110; 97116; 97161; 97165; 97530; A9270; C1713; C1776; J0171; J0690; J1100; J1170; J1885; J2250; J2270; J2405; J2704; J2795; J3010; J7120

== ENCOUNTER 2022-11-27 10:57 | Outpatient (CLI) | payer OTHER, SELFPAY ==
--- NOTE | ~2022-11-27 | XR_ITS ---
EXAM: XR knee LT 3V DATE: 11/27/2022 11:14 HISTORY: Z96.652Presence of left artificial knee joint, pain . COMPARISON: 05/21/2022. FINDINGS: Uncomplicated left medial compartment hemiarthroplasty. Decreased mineralization. No fract ure or dislocation. No lytic or blastic lesion. Mild lateral compartment and moderate patellofemoral compartment osteoarthritis. Small volume joint fluid. Quadriceps and patellar enthesopathy. No erosio n or periosteal change. Soft tissues within normal limits. IMPRESSION: No acute osseous finding the left knee. No radiographic evidence of hardware-related comp lication. Reviewed, dictated and finalized at location K. IMPRESSION: No acute osseous finding the left knee. No radiographic evidence of hardware-related complication.
== END 2022-11-27 10:58 | disposition home or self-care (01) ==
LOC: ANHIMG 11:00
PROVIDERS: PCP Family Medicine; Visit Provider Orthopaedic Surgery
DX: M25.562 Pain in left knee (principal); Z96.652 Presence of left artificial knee joint
CPT/HCPCS: 73562

== ENCOUNTER 2022-11-28 11:45 | Outpatient (CLI) | payer OTHER, SELFPAY ==
--- NOTE | ~2022-11-28 | US_ITS ---
EXAMINATION: US venous doppler [facility] DATE: 11/28/2022 12:11 INDICATION: Left lower limb pain and swelling. TECHNIQUE: Grayscale ultrasound images without and with compression and Doppler ultrasound images of the left lower extremity veins were obtained. COMPARISON: None. FINDINGS: The visualized portions of left common femoral vein, profunda (deep) femoral vein, femoral vein, popl iteal vein, peroneal veins, posterior tibial veins, and greater saphenous vein outflow are patent. IMPRESSION: 1. No deep venous thrombosis. Reviewed, dictated and finalized at location A.
== END 2022-11-28 11:46 | disposition home or self-care (01) ==
PROVIDERS: PCP Family Medicine; Visit Provider Orthopaedic Surgery
DX: M79.89 Other specified soft tissue disorders (principal)
CPT/HCPCS: 93971

== ENCOUNTER 2023-01-16 08:21 | Outpatient (CLI) | payer OTHER, SELFPAY ==
[2023-01-16 09:13] LABS: Alanine Aminotransferase 32 U/L (6-50); Albumin Level 4.7 g/dL (3.5-5.1); Alkaline Phosphatase 42 U/L (38-126); Anion Gap 7 mmol/L (8-16); Aspartate Amino Transferase 36 U/L (17-59); Bilirubin,Total 0.5 mg/dL (0.2-1.3); Blood Urea Nitrogen 18 mg/dL (9-20); Calcium 10.1 mg/dL (8.4-10.2); Carbon Dioxide 32 mmol/L (22-30); Chloride 101 mmol/L (98-107); Cholesterol 200 mg/dL (0-200); Estimated Glomerular Filt Rate > 60; Glucose 104 mg/dL (65-110); HDL Direct 31 mg/dL; Potassium 4.6 mmol/L (3.4-5.0); Sodium 140 mmol/L (137-145); Triglycerides 143 mg/dL (<150)
[2023-01-16 09:14] LABS: Hemoglobin A1C 5.8 % (<5.7)
[2023-01-16 09:17] LABS: LDL Cholesterol Direct 130 mg/dL
== END 2023-01-16 08:22 | disposition home or self-care (01) ==
LOC: ANHLAB 08:23
PROVIDERS: PCP Family Medicine; Visit Provider Family Medicine
DX: E11.9 Type 2 diabetes mellitus without complications (principal)
CPT/HCPCS: 36415; 80053; 80061; 83036

== ENCOUNTER 2023-01-22 15:19 | Outpatient (NON) | payer OTHER, SELFPAY | END 2023-01-22 15:20 | disposition home or self-care (01) | LOC: ANHGOSHLAB 15:21 | PROVIDERS: PCP Family Medicine; Visit Provider Nurse Practitioner Family | DX: N39.0 Urinary tract infection, site not specified (principal) | CPT/HCPCS: 87086; 87088 ==

== ENCOUNTER 2023-10-21 15:26 | Outpatient (CLI) | payer MEDICARE, SELFPAY ==
[2023-10-21 20:57] LABS: Creatinine Urine 552.6 mg/dL; MALB Creatinine Ratio 4.2 mg/g (0-30)
[2023-10-23 13:22] LABS: Hemoglobin A1C 6.5 % (<5.7)
== END 2023-10-21 15:27 | disposition home or self-care (01) ==
LOC: ANHGOSHLAB 15:28
PROVIDERS: PCP Family Medicine; Visit Provider Family Medicine
DX: E11.9 Type 2 diabetes mellitus without complications (principal)
CPT/HCPCS: 36415; 82043; 83036

== ENCOUNTER 2024-01-01 08:11 | Outpatient (CLI) | payer MEDICARE, SELFPAY ==
--- NOTE | 2024-01-01 08:24 | ECHO_ITS ---
Patient Info Name: Desmond Delcid Age: 68 years : 1955 Gender: Male Ht: 69 in Wt: 200 lbs BSA: 2.12 m2 HR: 74 bpm BP: 172 / 95 mmHg Heart Rhythm: Sinus Rhythm Technical Quality: Good Exam Date: 01/01/2024 8:35 AM Exam Location: Echo Lab Patient Status: Outpatient Admit Date: 01/01/2024 Staff Ordering Physician: Eve Kimbrough Lan Specialist: Clive Boyer RDCS Attending Provider: Eve Kimbrough Referring Physician: Kaylan JONAS; Exam Type: CA echo doppler color flow Study Info Indications - murmur Complete two-dimensional, color flow and Doppler transthoracic echocardiogram is performed. Summary 1. Complete two-dimensional, color flow and Doppler transthoracic echocardiogram is performed. 2. Left ventricular chamber dimension is normal. 3. Left ventricular systolic function is normal, estimated at 60-65%. 4. There is mild concentric increased left ventricular wall thickness. 5. The left ventricular diastolic function is normal. 6. E/e' 8 is minimally elevated. 7. Left atrial chamber dimension is mildly enlarged. 8. There is trace aortic valve regurgitation. 9. There is mild to moderate mitral valve regurgitation. 10. There is mild tricuspid valve regurgitation. 11. No pulmonary hypertension, estimated pulmonary arterial systolic pressure is 30 mmHg. Left Ventricle E/e' 8 is minimally elevated. Left ventricular chamber dimension is normal. Left ventricular systolic function is normal, estimated at 60-65%. There is mild concentric increased left ventricular wall thickness. The left ventricular diastolic function is normal. Right Ventricle Right ventricular systolic function is normal and with normal TAPSE 3.0 cm. Right ventricular chamber dimension is normal. Left Atria Left atrial chamber dimension is mildly enlarged. Right Atria Right atrial chamber dimension is normal. Aortic Valve The aortic valve is trileaflet. There is no aortic valve stenosis. There is trace aortic valve regurgitation. Pulmonic Valve There is no pulmonic regurgitation. Mitral Valve There is no mitral valve stenosis. There is mild to moderate mitral valve regurgitation. Tricuspid Valve There is mild tricuspid valve regurgitation. No pulmonary hypertension, estimated pulmonary arterial systolic pressure is 30 mmHg. Pericardium/Pleural There is no pericardial effusion. Inferior Vena Cava Normal inferior vena cava with >50% collapse upon inspiration consistent with normal right atrial pressure, 5 mmHg. Aorta The aortic root size at the sinus of Valsalva is normal. Left Ventricular Outflow Tract Name Value Normal LVOT 2D LVOT Diameter 2.1 cm LVOT Doppler LVOT Peak Gradient 3 mmHg LVOT Mean Gradient 2 mmHg LVOT VTI 18 cm LVOT VTI/AV VTI Ratio 0.7 LVOT Stroke Volume 64 ml LVOT CO 4.0 l/min LVOT CI 1.9 l/min/m2 Pulmonic Valve Name Value Nor
== END 2024-01-01 08:12 | disposition home or self-care (01) ==
LOC: ANHCARD 08:12
PROVIDERS: PCP Family Medicine; Visit Provider Nurse Practitioner Family
DX: R01.1 Cardiac murmur, unspecified (principal); I34.0 Nonrheumatic mitral (valve) insufficiency; I36.1 Nonrheumatic tricuspid (valve) insufficiency
CPT/HCPCS: 93306

== ENCOUNTER 2024-04-06 12:24 | Outpatient (CLI) | payer MEDICARE, SELFPAY ==
[2024-04-06 13:33] LABS: Alanine Aminotransferase 24 U/L (6-50); Albumin Level 4.6 g/dL (3.5-5.1); Alkaline Phosphatase 46 U/L (38-126); Anion Gap 4 mmol/L (4-12); Aspartate Amino Transferase 31 U/L (17-59); Bilirubin,Total 0.4 mg/dL (0.2-1.3); Blood Urea Nitrogen 17 mg/dL (9-20); Calcium 9.3 mg/dL (8.4-10.2); Carbon Dioxide 32 mmol/L (22-30); Chloride 102 mmol/L (98-107); Cholesterol 191 mg/dL (0-200); Estimated Glomerular Filt Rate > 60; Glucose 114 mg/dL (65-110); HDL Direct 28 mg/dL; Magnesium 2.1 mg/dL (1.6-2.3); Potassium 4.4 mmol/L (3.4-5.0); Sodium 138 mmol/L (137-145); Triglycerides 267 mg/dL (<150)
[2024-04-06 13:44] LABS: LDL Cholesterol Direct 120 mg/dL
[2024-04-06 14:05] LABS: Prostate Specific Antigen 0.8 ng/mL (< OR = 4.0)
[2024-04-06 14:07] LABS: Hemoglobin A1C 6.4 % (<5.7)
[2024-04-06 14:09] LABS: Creatinine Urine 113.3 mg/dL
[2024-04-06 14:19] LABS: MALB Creatinine Ratio < 5.3 mg/g (0-30); Microalbumin Urine Random < 6.0 mg/L (0-16.7)
== END 2024-04-06 12:25 | disposition home or self-care (01) ==
PROVIDERS: PCP Family Medicine; Visit Provider Student in an Organized Health Care Education/Training Program
DX: R25.2 Cramp and spasm (principal); E11.9 Type 2 diabetes mellitus without complications; Z12.5 Encounter for screening for malignant neoplasm of prostate
CPT/HCPCS: 36415; 80053; 80061; 82043; 83036; 83735; 84153; G0103

== ENCOUNTER 2024-06-16 23:34 | Emergency (ER) | payer MEDICARE, SELFPAY ==
--- NOTE | ~2024-06-16 | XR_ITS ---
Clinical Indication: Cough PA and lateral views of the chest: Comparison: 03/26/2020 Findings: The lungs are clear, without evidence of focal consolidation or pleural effusion. Cardiome diastinal silhouette is within normal limits. Bones and soft tissues are unremarkable. Impression: Normal chest. Reviewed, dictated and finalized at [facility]. R LAYER APPRENTICE Impression: Normal chest.
[2024-06-16 23:38] VITALS: BP 180/67; PULSE 106; RESP 20; TEMP 37.7; O2SAT 97
[2024-06-17 03:31] VITALS: BP 185/84; PULSE 96; RESP 20; O2SAT 98; O2SAT 99
[2024-06-17] MEDS: ACETAMINOPHEN 500 MG TABLET 1000 MG PO (03:37)
[2024-06-17] MEDS: IPRATROPIUM 0.5 MG/ALBUTEROL SULFATE 2.5 MG AMPUL.NEB 3 ML INHALATION (04:00)
[2024-06-17 04:01] VITALS: RESP 22
--- NOTE | 2024-06-17 04:12 | ED.GENADULT ---
HPI - General Adult General Chief complaint: Upper Respiratory Infection Stated complaint: cough Time Seen by Provider: 06/17/24 03:44 History of Present Illness HPI narrative: Patient 69-year-old gentleman who presents emergency department with chief complaint of cough for the last 3 days patient reports he has been having body aches Related Data Home Medications ?Medication ?Instructions ?Recorded ?Confirmed ?Last Taken ?Type multivitamin 1 tablet PO DAILY 03/04/20 02/26/24 05/14/22 History vitamin B complex 1 cap PO DAILY 03/04/20 02/26/24 11/29/20 History omega-3 fatty acids 2 cap PO DAILY 11/22/20 02/26/24 11/29/20 History tadalafil 20 mg tablet mg PO 10/25/23 02/26/24 Unknown History Allergies Allergy/AdvReac Type Severity Reaction Status Date / Time ibuprofen AdvReac Gastrointestinal Verified 06/16/24 23:35 Upset Review of Systems Review of Systems: A 10 system review of systems was completed on the patient and is negative except for what is stated in the HPI. Nursing and ancillary documentation was reviewed. [facility] Past Medical History Medical History Other cervical disc degeneration, cervicothoracic region Unilateral primary osteoarthritis, right knee Unilateral primary osteoarthritis, left knee Tension headache Other intervertebral disc degeneration, thoracic region Herpes zoster without complication Left tennis elbow UTI (urinary tract infection) Osteoarthritis of left knee Hypertension BMI 28.0-28.9,adult Toe fracture Arthritis Rectal polyp Colon polyps Pulmonary embolism DVT (deep venous thrombosis) TMJ (dislocation of temporomandibular joint) Degeneration of intervertebral disc, site unspecified Essential (primary) hypertension Gastro-esophageal reflux disease without esophagitis Lumbago with sciatica Mixed hyperlipidemia Other irritable bowel syndrome Surgical History Surgical History Status post left unicompartmental knee replacement May 21, 2022 History of spinal surgery S/P right unicompartmental knee replacement 2015 History of hand surgery Right, Knot removal Dr. Gregory Family History Family History Mother Diabetes mellitus Family history of lung cancer Hypertension Dementia Septicemia Sibling Family history of malignant neoplasm of breast in first degree relative, Onset Age: 45 Breast cancer Social History Social History Smoking status: Never smoker Second hand tobacco smoke exposure: No Additional smoking assessment comments: DENIES ANY FORM OF TOBACCO USE Alcohol intake: current Drinks per week: 7 Alcohol use details: BEER Substance use: never Substance use type: does not use Do You Feel Safe in your Home?: Yes Lack of Transportation: No Lack of Food: Never True Current Housing: I Have Housing Concerned About Future Housing: No Difficulty Paying Gas/Electric Bills: No Difficulty Paying for Meds: No Currently Unemployed: No Education: High School Diploma/GED Difficulty w/ Childcare or Family Care: No Living arrangements: with family Additional living arrangements comments: Occupation/Education: occupation 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 HEAD: Normocephalic, atraumatic. EYES: PERRLA and EOMI. ENT: Nares clear, no rhinorrhea or epistaxis. Mucous membranes moist. NECK: Supple. CHEST: Clear to auscultation. No respiratory distress. HEART: Regular rate and rhythm. No murmur heard. Normal peripheral pulses. ABDOMEN: Soft, nontender, nondistended, normal active bowel sounds. EXTREMITIES: Normal range of motion. No edema. SKIN: Warm, dry, no rash. NEURO: No focal deficits. Alert and oriented x3. PSYCH: Normal mood and affect. Course Vital Signs Vital signs: Vital Signs Temperature 37.7 C H 06/16/24 23:38 Pulse Rate 106 H 06/16/24 23:38 Respiratory Rate 20 06/16/24 23:38 Blood Pressure 180/67 H 06/16/24 23:38 Pulse Oximetry 97 06/16/24 23:38 Oxygen Delivery Room Air 06/16/24 23:38 Temperature 37.7 C H 06/16/24 23:38 Pulse Rate 96 06/17/24 03:31 Respiratory Rate 22 H 06/17/24 04:01 Blood Pressure 185/84 H 06/17/24 03:31 Pulse Oximetry 99 06/17/24 03:31 Oxygen Delivery Room Air 06/17/24 03:31 Medical Decision Making MDM Narrative Medical decision making narrative: Differential diagnosis includes pneumonia, upper respiratory infection, influenza, COVID, RSV Chest x-ray showed no focal infiltrate Patient was influenza A positive Vital Signs Vital Signs: Vital Signs Temperature 37.7 C H 06/16/24 23:38 Pulse Rate 106 H 06/16/24 23:38 Respiratory Rate 20 06/16/24 23:38 Blood Pressure 180/67 H 06/16/24 23:38 Pulse Oximetry 97 06/16/24 23:38 Oxygen Delivery Room Air 06/16/24 23:38 Temperature 37.7 C H 06/16/24 23:38 Pulse Rate 96 06/17/24 03:31 Respiratory Rate 22 H 06/17/24 04:01 Blood Pressure 185/84 H 06/17/24 03:31 Pulse Oximetry 99 06/17/24 03:31 Oxygen Delivery Room Air 06/17/24 03:31 Lab Data Labs: Lab Results 06/17/24 Range/Units 03:39 Influenza A (RT-PCR) Positive A (Negative) Influenza B (RT-PCR) Negative (Negative) RSV (RT-PCR) Negative (Negative) SARS-CoV-2 RNA (RT-PCR) Negative (Negative) Discharge Plan Discharge Clinical Impression: Influenza Patient Disposition: Home, Self-Care Condition: Stable Instructions: Antibiotic Form, Influenza (ED) Patient Language: Mohawk Prescriptions: New benzonatate 200 mg capsule 200 mg PO TID PRN (Reason: cough) Qty: 21 0RF prednisone 20 mg tablet 40 mg PO DAILY 5 Days Qty: 10 0RF albuterol sulfate 90 mcg/actuation HFA aerosol inhaler 2 puff inhalation QID PRN (Reason: shortness of breath or wheezing) Qty: 8.5 0RF No Action tadalafil 20 mg tablet PO omega-3 fatty acids Capsule 2 cap PO DAILY vitamin B complex Capsule 1 cap PO DAILY multivitamin Tablet 1 tablet PO DAILY celecoxib [Celebrex] 200 mg capsule 200 mg PO BID Qty: 180 3RF omeprazole 40 mg capsule,delayed release(DR/EC) 40 mg PO DAILY Qty: 90 1RF telmisartan-hydrochlorothiazid 80-12.5 mg tablet See Rx Instructions .ROUTE .COMPLEX Qty: 90 1RF Dose Instruction: TAKE 1 TABLET BY MOUTH DAILY Rx Instructions: TAKE 1 TABLET BY MOUTH DAILY tizanidine 4 mg tablet 4 mg PO QHS PRN (Reason: muscle spasticity) Qty: 90 1RF amoxicillin-pot clavulanate 875-125 mg tablet 1 tablet PO BID Qty: 20 0RF metformin 500 mg tablet extended release 24 hr See Rx Instructions .ROUTE .COMPLEX Qty: 60 0RF Dose Instruction: TAKE 2 TABLETS BY MOUTH DAILY Rx Instructions: TAKE 2 TABLETS BY MOUTH DAILY tramadol 50 mg tablet 100 mg PO Q6H Qty: 240 1RF Follow-up/Referrals: Keanu Franks MD [Primary Care Provider] - Time of Disposition: 05:02
[2024-06-17 04:19] LABS: Influenza A QL RT-PCR Positive (Negative); Influenza B QL RT-PCR Negative (Negative); RSV RNA, RT-PCR Negative (Negative); SARS-CoV-2 RNA PCR Negative (Negative)
[2024-06-17 05:35] VITALS: BP 133/59; PULSE 85; RESP 16; O2SAT 97
== END 2024-06-17 05:35 | disposition home or self-care (01) ==
PROVIDERS: Emergency Provider Emergency Medicine; PCP Family Medicine
DX: J11.1 Influenza due to unidentified influenza virus with other respiratory manifestations (principal); M19.90 Unspecified osteoarthritis, unspecified site; Z87.440 Personal history of urinary (tract) infections; I10 Essential (primary) hypertension; Z86.711 Personal history of pulmonary embolism; Z86.718 Personal history of other venous thrombosis and embolism; K21.9 Gastro-esophageal reflux disease without esophagitis; E78.5 Hyperlipidemia, unspecified
CPT/HCPCS: 71046; 87637; 94640; 99283; A9270

== ENCOUNTER 2024-07-10 12:33 | Outpatient (CLI) | payer MEDICARE, SELFPAY ==
[2024-07-10 18:27] LABS: Alanine Aminotransferase 23 U/L (6-50); Albumin Level 4.6 g/dL (3.5-5.1); Alkaline Phosphatase 46 U/L (38-126); Anion Gap 9 mmol/L (4-12); Aspartate Amino Transferase 34 U/L (17-59); Bilirubin,Total 0.5 mg/dL (0.2-1.3); Blood Urea Nitrogen 14 mg/dL (9-20); Calcium 9.4 mg/dL (8.4-10.2); Carbon Dioxide 31 mmol/L (22-30); Chloride 99 mmol/L (98-107); Cholesterol 176 mg/dL (0-200); Estimated Glomerular Filt Rate > 60; Glucose 91 mg/dL (65-110); HDL Direct 28 mg/dL; Potassium 4.1 mmol/L (3.4-5.0); Sodium 139 mmol/L (137-145); Triglycerides 199 mg/dL (<150)
[2024-07-10 18:33] LABS: Creatinine Urine 53.9 mg/dL
[2024-07-10 18:35] LABS: Hemoglobin A1C 6.4 % (<5.7)
[2024-07-10 18:38] LABS: LDL Cholesterol Direct 115 mg/dL
[2024-07-10 18:42] LABS: MALB Creatinine Ratio < 11.1 mg/g (0-30); Microalbumin Urine Random < 6.0 mg/L (0-16.7)
== END 2024-07-10 12:34 | disposition home or self-care (01) ==
LOC: ANHGOSHLAB 12:35
PROVIDERS: PCP Family Medicine; Visit Provider Family Medicine
DX: E11.9 Type 2 diabetes mellitus without complications (principal)
CPT/HCPCS: 36415; 80053; 80061; 82043; 83036

== ENCOUNTER 2025-01-22 12:31 | Outpatient (CLI) | payer MEDICARE, SELFPAY ==
[2025-01-22 19:15] LABS: Alanine Aminotransferase 21 U/L (6-50); Albumin Level 4.6 g/dL (3.5-5.1); Alkaline Phosphatase 51 U/L (38-126); Anion Gap 8 mmol/L (4-12); Aspartate Amino Transferase 50 U/L (17-59); Bilirubin,Total 0.6 mg/dL (0.2-1.3); Blood Urea Nitrogen 16 mg/dL (9-20); Calcium 9.1 mg/dL (8.4-10.2); Carbon Dioxide 31 mmol/L (22-30); Chloride 98 mmol/L (98-107); Cholesterol 173 mg/dL (0-200); Estimated Glomerular Filt Rate > 60; Glucose 96 mg/dL (65-110); HDL Direct 30 mg/dL; Potassium 4.2 mmol/L (3.4-5.0); Sodium 137 mmol/L (137-145); Total Protein 8.1 g/dL (6.3-8.2); Triglycerides 268 mg/dL (<150)
[2025-01-22 19:56] LABS: MALB Creatinine Ratio 10.0 mg/g (0-30)
[2025-01-22 20:04] LABS: Hemoglobin A1C 5.9 % (<5.7)
[2025-01-22 20:09] LABS: Vitamin B12 304.0 pg/mL (239-931)
== END 2025-01-22 12:32 | disposition home or self-care (01) ==
LOC: ANHGOSHLAB 12:32
PROVIDERS: PCP Family Medicine; Visit Provider Family Medicine
DX: E78.2 Mixed hyperlipidemia (principal); Z68.28 Body mass index [BMI] 28.0-28.9, adult; E11.9 Type 2 diabetes mellitus without complications
CPT/HCPCS: 36415; 80053; 80061; 82043; 82607; 83036